=== PATIENT | female | born 1970 | race American Indian/Alaskan Native ===

== ENCOUNTER 2016-12-10 06:20 | Emergency (ER) | payer SELFPAY ==
[2016-12-10 06:44] VITALS: BP 152/108
--- NOTE | 2016-12-10 07:45 | Emergency Department Report ---
Addendum entered and electronically signed by MARK HERNANDEZ PA 12/10/16 16 :10: Cardiovascular S1-S2 regular rate and rhythm respiratory she is clear to auscultation bilateral Original Note: ED General Adult HPI - General Chief complaint: Headache Stated complaint: SINUS INFECTION Time Seen by Provider: 12/10/16 07:38 Source: patient Mode of arrival: Ambulatory Limitations: No Limitations - History of Present Illness Initial comments: 33-year-old female comes in for complaint of upper respiratory issues. She reports that she is here for her sinuses which she reports are draining now. She complains of nasal congestion she denies any nausea vomiting fever chills. She does admit to having a slight headache. She also reports to me that she's been out of her hypertensive medicine which consist of lisinopril/ hydrochlorothiazide 10-12.5 mg by mouth daily. She is requesting a refill on that medication. She does admit that she has been using her Afrin to often. She does report having a past medical history of sinus surgery. Which she feels this has not helped her issues - Related Data Home Medications Medication Instructions Recorded Confirmed Last Taken Lisinopril/Hydrochlorothiazide 1 tab PO QDAY 02/07/15 04/09/15 02/06/15 [Zestoretic 20-12.5 mg] Previous Rx's Medication Instructions Recorded Last Taken Type Clindamycin [Cleocin] 300 mg PO Q8H #21 cap 02/07/15 Unknown Rx Fluticasone Propionate [Flonase] 100 mcg NS QDAY #1 spray.susp 02/07/15 Unknown Rx Indomethacin [Indocin] 25 mg PO TID #21 capsule 04/09/15 Unknown Rx Nitrofurantoin [place]/M-Cryst 100 mg PO Q12HR #14 capsule 12/09/15 Unknown Rx [Macrobid CAP] Phenazopyridine [Pyridium] 100 mg PO TID #6 tab 12/09/15 Unknown Rx metroNIDAZOLE [Flagyl] 500 mg PO Q12HR #14 tab 12/09/15 Unknown Rx Azithromycin [Zithromax Z-MARSHA] 250 mg PO DAILY #6 tab 04/24/16 Unknown Rx Loratadine [Claritin] 10 mg PO DAILY #7 tablet 04/24/16 Unknown Rx Azithromycin [Zithromax] 250 mg PO DAILY #6 tablet 10/15/16 Unknown Rx Fexofenadine/Pseudoephedrine [Kro 1 each PO BID #60 tab.er.12h 12/10/16 Unknown Rx Allergy Relief-D Tablet] Lisinopril/Hydrochlorothiazide 1 tab PO QDAY #30 tablet 12/10/16 Unknown Rx [Zestoretic 10-12.5 mg] Allergies Allergy/AdvReac Type Severity Reaction Status Date / Time Penicillins Allergy Rash Verified 04/24/16 07:09 ED Review of Systems ROS: Stated complaint: SINUS INFECTION Other details as noted in HPI Constitutional: denies: chills, fever ENT: congestion. denies: throat pain, hearing loss Respiratory: denies: cough ED Past Medical Hx - Past Medical History Hx Hypertension: Yes Hx CVA: No Hx Heart Attack/AMI: No Hx Congestive Heart Failure: No Hx Diabetes: No Hx Deep Vein Thrombosis: No Hx Pulmonary Embolism: No Hx GERD: No Hx Liver Disease: No Hx Renal Disease: No Hx Sickle Cell Disease: No Hx Arthritis: No Hx Headaches / Migraines: No Hx Seizures: No Hx Kidney Stones: No Hx Psychiatric Treatment: No Hx Asthma: No Hx COPD: No Hx Tuberculosis: No Hx Dementia: No Hx HIV: No - Surgical History Hx Coronary Stent: No Hx Open Heart Surgery: No Hx Pacemaker: No Hx Internal Defibrillator: No Hx Cholecystectomy: Yes Hx Appendectomy: No Hx Breast Surgery: No Additional Surgical History: partial hysterectomy - Social History Smoking Status: Never Smoker Substance Use Type: None - Medications Home Medications: Home Medications Medication Instructions Recorded Confirmed Last Taken Type Clindamycin [Cleocin] 300 mg PO Q8H #21 cap 02/07/15 04/09/15 Unknown Rx Fluticasone Propionate [Flonase] 100 mcg NS QDAY #1 spray.susp 02/07/15 Unknown Rx Lisinopril/Hydrochlorothiazide 1 tab PO QDAY 02/07/15 04/09/15 02/06/15 History [Zestoretic 20-12.5 mg] Indomethacin [Indocin] 25 mg PO TID #21 capsule 04/09/15 Unknown Rx Nitrofurantoin [place]/M-Cryst 100 mg PO Q12HR #14 capsule 12/09/15 Unknown Rx [Macrobid CAP] Phenazopyridine [Pyridium] 100 mg PO TID #6 tab 12/09/15 Unknown Rx metroNIDAZOLE [Flagyl] 500 mg PO Q12HR #14 tab 12/09/15 Unknown Rx Azithromycin [Zithromax Z-MARSHA] 250 mg PO DAILY #6 tab 04/24/16 Unknown Rx Loratadine [Claritin] 10 mg PO DAILY #7 tablet 04/24/16 Unknown Rx Azithromycin [Zithromax] 250 mg PO DAILY #6 tablet 10/15/16 Unknown Rx Fexofenadine/Pseudoephedrine [Kro 1 each PO BID #60 tab.er.12h 12/10/16 Unknown Rx Allergy Relief-D Tablet] Lisinopril/Hydrochlorothiazide 1 tab PO QDAY #30 tablet 12/10/16 Unknown Rx [Zestoretic 10-12.5 mg] ED Physical Exam - General Limitations: No Limitations - Head Head exam: Present: atraumatic, normocephalic - Eye Eye exam: Present: normal appearance - ENT ENT exam: Present: TM's normal bilaterally, other (bilateral nasal turbinates are boggy and erythematous) - Neck Neck exam: Present: normal inspection. Absent: tenderness ED Course Vital Signs 12/10/16 06:30 Temperature 98.7 F Pulse Rate 78 Respiratory 18 Rate Blood Pressure 152/108 O2 Sat by Pulse 99 Oximetry ED Medical Decision Making - Medical Decision Making Patient's been evaluated by this provider in fast track. We'll refill her hypertensive medicine. Will place patient on Angle-D 1 tablet by mouth twice a day as well as recommend her to use the Afrin per nostril at night and uses the Flonase that she has at home as prescribed. Patient verbalized understanding Critical care attestation.: If time is entered above; I have spent that time in minutes in the direct care of this critically ill patient, excluding procedure time. ED Disposition Clinical Impression: Nasal congestion due to prolonged use of decongestants Hypertension Qualifiers: Hypertension type: essential hypertension Qualified Code(s): I10 - Essential ( primary) hypertension Disposition: DISCHARGED TO HOME OR SELFCARE Is pt being admited?: No Does the pt Need Aspirin: No Condition: Stable Instructions: Hypertension (ED) Prescriptions: Fexofenadine/Pseudoephedrine [Kro Allergy Relief-D Tablet] 1 each PO BID #60 tab.er.12h Lisinopril/Hydrochlorothiazide [Zestoretic 10-12.5 mg] 1 tab PO QDAY #30 tablet Referrals: PRIMARY CAREMD [Primary Care Provider] - 3-5 Days GIGI MEMBRENO MD [Staff Physician] - 3-5 Days Forms: Work/School Release Form(ED)
== END 2016-12-10 07:53 | disposition home or self-care (01) ==
LOC: ED 06:20
DX: R09.81 Nasal congestion (principal); I10 Essential (primary) hypertension; Z90.711 Acquired absence of uterus with remaining cervical stump; Z88.0 Allergy status to penicillin
CPT/HCPCS: 99282

== ENCOUNTER 2016-12-25 06:17 | Emergency (ER) | payer SELFPAY ==
[2016-12-25 07:18] VITALS: BP 140/98
--- NOTE | 2016-12-25 08:31 | Emergency Department Report ---
HPI - General Chief Complaint: Headache Time Seen by Provider: 12/25/16 07:59 - HPI HPI: This is a 46-year-old Afro-Australian female presents to the emergency department with a two-week history of a "sinus headache" which the patient complains of pressure to the forehead and around her nose.. She has a history of this in the past and says that it feels similar. She had some previous Flonase and Claritin and has been using that without much relief. She denies any fever, vision change, slurred speech or any neurological deficits. She denies any past medical history other than hypertension. She has a primary care doctor but cannot currently remember their name. No recent travel or sick contacts at home. She denies any chest pain, sore throat, shortness of breath, cough. ED Past Medical Hx - Past Medical History Hx Hypertension: Yes Hx CVA: No Hx Heart Attack/AMI: No Hx Congestive Heart Failure: No Hx Diabetes: No Hx Deep Vein Thrombosis: No Hx Pulmonary Embolism: No Hx GERD: No Hx Liver Disease: No Hx Renal Disease: No Hx Sickle Cell Disease: No Hx Arthritis: No Hx Headaches / Migraines: No Hx Seizures: No Hx Kidney Stones: No Hx Psychiatric Treatment: No Hx Asthma: No Hx COPD: No Hx Tuberculosis: No Hx Dementia: No Hx HIV: No - Surgical History Hx Coronary Stent: No Hx Open Heart Surgery: No Hx Pacemaker: No Hx Internal Defibrillator: No Hx Cholecystectomy: Yes Hx Appendectomy: No Hx Breast Surgery: No Additional Surgical History: partial hysterectomy - Social History Smoking Status: Never Smoker Substance Use Type: None - Medications Home Medications: Home Medications Medication Instructions Recorded Confirmed Last Taken Type Clindamycin [Cleocin] 300 mg PO Q8H #21 cap 02/07/15 04/09/15 Unknown Rx Fluticasone Propionate [Flonase] 100 mcg NS QDAY #1 spray.susp 02/07/15 Unknown Rx Lisinopril/Hydrochlorothiazide 1 tab PO QDAY 02/07/15 04/09/15 02/06/15 History [Zestoretic 20-12.5 mg] Indomethacin [Indocin] 25 mg PO TID #21 capsule 04/09/15 Unknown Rx Nitrofurantoin [place]/M-Cryst 100 mg PO Q12HR #14 capsule 01/29/16 Unknown Rx [Macrobid CAP] Phenazopyridine [Pyridium] 100 mg PO TID #6 tab 12/09/15 Unknown Rx metroNIDAZOLE [Flagyl] 500 mg PO Q12HR #14 tab 12/09/15 Unknown Rx Azithromycin [Zithromax Z-MARSHA] 250 mg PO DAILY #6 tab 04/24/16 Unknown Rx Loratadine [Claritin] 10 mg PO DAILY #7 tablet 04/24/16 Unknown Rx Azithromycin [Zithromax] 250 mg PO DAILY #6 tablet 10/15/16 Unknown Rx Fexofenadine/Pseudoephedrine [Kro 1 each PO BID #60 tab.er.12h 12/10/16 Unknown Rx Allergy Relief-D Tablet] Lisinopril/Hydrochlorothiazide 1 tab PO QDAY #30 tablet 12/10/16 Unknown Rx [Zestoretic 10-12.5 mg] Azithromycin [Zithromax Z-MARSHA] 250 mg PO DAILY #6 tab 12/25/16 Unknown Rx ED Review of Systems ROS: Stated complaint: SINUS HEADACHE Other details as noted in HPI Comment: All other systems reviewed and negative Constitutional: denies: chills, fever Eyes: denies: eye pain, eye discharge, vision change ENT: congestion. denies: ear pain, throat pain Respiratory: denies: cough, shortness of breath, wheezing Cardiovascular: denies: chest pain, palpitations Gastrointestinal: denies: abdominal pain, nausea, diarrhea Genitourinary: denies: urgency, dysuria, discharge Musculoskeletal: denies: back pain, joint swelling, arthralgia Skin: denies: rash, lesions Neurological: headache. denies: weakness, numbness Physical Exam - Physical Exam Vital Signs: Vital Signs 12/25/16 07:16 Temperature 98.5 F Pulse Rate 72 Respiratory 20 Rate Blood Pressure 140/98 O2 Sat by Pulse 99 Oximetry Physical Exam: GENERAL: The patient is well-developed well-nourished. HEENT: Normocephalic. Atraumatic. Extraocular motions are intact. Patient has moist mucous membranes. Pupils equal reactive to light bilaterally. Reproducible tenderness palpation to the bilateral maxillary and frontal sinuses. Slight cobblestoning appearance to the posterior pharynx. Boggy nasal mucosa bilaterally with some clearish white secretion seen. NECK: Supple. Trachea is midline. CHEST/LUNGS: Clear to auscultation. There is no respiratory distress noted. HEART/CARDIOVASCULAR: Regular. There is no tachycardia. There is no gallop rub or murmur. ABDOMEN: Abdomen is soft, nontender. Patient has normal bowel sounds. There is no abdominal distention. SKIN: There is no rash. There is no edema. There is no diaphoresis. NEURO: The patient is awake, alert, and oriented. The patient is cooperative. The patient has no focal neurologic deficits. The patient has normal speech. MUSCULOSKELETAL: There is no tenderness or deformity. There is no limitation range of motion. There is no evidence of acute injury. ED Course Vital Signs 12/25/16 07:16 Temperature 98.5 F Pulse Rate 72 Respiratory 20 Rate Blood Pressure 140/98 O2 Sat by Pulse 99 Oximetry ED Medical Decision Making - Medical Decision Making 46-year-old female presents with complaint of sinus pressure and headache. She does have some boggy nasal mucosa and a slight cobblestoning appearance to the posterior pharynx. Vital signs stable including being afebrile. Already on Flonase and Claritin so will add a Z-Marsha and give the patient a single dose of Decadron. She will be encouraged to follow up with her PCP and return to the ER with any worsening of her symptoms or any acute distress. Critical Care Time: No Critical care attestation.: If time is entered above; I have spent that time in minutes in the direct care of this critically ill patient, excluding procedure time. ED Disposition Clinical Impression: Sinusitis Qualifiers: Sinusitis location: unspecified location Chronicity: subacute Qualified Code(s) : J01.90 - Acute sinusitis, unspecified Hypertension Qualifiers: Hypertension type: essential hypertension Qualified Code(s): I10 - Essential ( primary) hypertension Disposition: DISCHARGED TO HOME OR SELFCARE Is pt being admited?: No Does the pt Need Aspirin: No Condition: Good Instructions: Hypertension (ED), Sinusitis (ED) Additional Instructions: Please follow-up with your primary care doctor. I also given a referral for a local ear nose throat physician. Return to the emergency department with any acute distress. Prescriptions: Azithromycin [Zithromax Z-MARSHA] 250 mg PO DAILY #6 tab Referrals: KAYY BECERRA MD [Primary Care Provider] - 3-5 Days EMMA ELIAS MD [Staff Physician] - 3-5 Days Time of Disposition: 08:32
[2016-12-25] MEDS ORDERED: DECADRON PO ONE (09:00)
== END 2016-12-25 09:01 | disposition home or self-care (01) ==
LOC: ED 06:17
DX: J01.90 Acute sinusitis, unspecified (principal); I10 Essential (primary) hypertension; Z90.49 Acquired absence of other specified parts of digestive tract; Z90.711 Acquired absence of uterus with remaining cervical stump
CPT/HCPCS: 99282; J8540

== ENCOUNTER 2017-02-26 14:48 | Emergency (ER) | payer SELFPAY ==
[2017-02-26 15:43] VITALS: BP 136/96
--- NOTE | 2017-02-26 15:58 | Emergency Department Report ---
Entered by YANI ROSS, acting as scribe for ARMANDO SOUZA NP. Chief Complaint: Headache Stated Complaint: HEADACHE Time Seen by Provider: 02/26/17 15:39 - HPI History of Present Illness: 46 y/o female presents c/o throbbing, 8/10, HOWELL that started 3 days ago. Sx include blurry vision but pt denies N/V or fever. Pt notes taking Tylenol with no relief. - ROS Review of Systems: +HOWELL +blurry vision -N -V -fever - Exam Vital Signs: Vital Signs 02/26/17 15:38 Temperature 98.5 F Pulse Rate 85 Respiratory 16 Rate Blood Pressure 136/96 O2 Sat by Pulse 100 Oximetry Physical Exam: PT c/o R frontal/ temporal headache Pt is alert and appropriate gcs 15 steady gait MSE screening note: Focused history and physical exam performed. Due to findings the following was ordered: ct head ED Disposition for MSE Condition: Stable This documentation as recorded by the scribe,YANI ROSS,accurately reflects the service I personally performed and the decisions made by LIBBY shepherd TRACY M , PROGRAM COORDINATOR.
--- NOTE | 2017-02-26 17:18 | Cat Scan Report ---
FINAL REPORT EXAM: CT HEAD/BRAIN WO CON HISTORY: frequent worsening rodriguez TECHNIQUE: CT head without contrast PRIORS: None. FINDINGS: No acute intra-axial or extra-axial hemorrhage is identified. There is no evidence of midline shift or mass effect. The ventricles and sulci are within normal limits. Concepcion-white matter differentiation is intact. No acute parenchymal abnormalities seen. Bony calvarium is grossly intact. Visualized portions of the mastoids and paranasal sinuses are unremarkable. IMPRESSION: Negative CT head
[2017-02-26] MEDS ORDERED: TORADOL IM ONE ×2 (18:04→18:35)
[2017-02-26] MEDS ORDERED: TORADOL ONE (18:07)
--- NOTE | 2017-02-26 18:40 | Emergency Department Report ---
ED Headache HPI - General Chief Complaint: Headache Stated Complaint: HEADACHE Time Seen by Provider: 02/26/17 15:39 Source: patient - History of Present Illness Initial Comments: 46-year-old -[place]ub[place] female comes in with complaint of a headache 2 days. Patient reports pain similar right jewish area above the right eye. She took Tylenol without any resolution of pain. She does complain of intermittent blurred vision off and on times couple days. She denies any nausea vomiting. Denies any fever or chills. She did complain of a nosebleed times a couple of seconds this morning right near only. She does admit that she is out of her blood pressure medicine as of yesterday. Timing/Duration: other (days) Quality: achy, pressure Head Injury Location: temporal Recent Head Trauma: no recent headache/trauma Modifying Factors: worse with: exposure to light Associated Symptoms: denies: fever/chills, nausea/vomiting, nasal congestion Allergies/Adverse Reactions: Allergies Penicillins Allergy (Verified 02/26/17 15:44) Rash Home Medications: Ambulatory Orders Clindamycin [Cleocin] 300 mg PO Q8H #21 cap 02/07/15 Fluticasone Propionate [Flonase] 100 mcg NS QDAY #1 spray.susp 02/07/15 Lisinopril/Hydrochlorothiazide [Zestoretic 20-12.5 mg] 1 tab PO QDAY 02/07/15 Indomethacin [Indocin] 25 mg PO TID #21 capsule 04/09/15 Nitrofurantoin [place]/M-Cryst [Macrobid CAP] 100 mg PO Q12HR #14 capsule 12/09/15 Phenazopyridine [Pyridium] 100 mg PO TID #6 tab 12/09/15 metroNIDAZOLE [Flagyl] 500 mg PO Q12HR #14 tab 12/09/15 Azithromycin [Zithromax Z-MARSHA] 250 mg PO DAILY #6 tab 04/24/16 Loratadine [Claritin] 10 mg PO DAILY #7 tablet 04/24/16 Azithromycin [Zithromax] 250 mg PO DAILY #6 tablet 10/15/16 Fexofenadine/Pseudoephedrine [Kro Allergy Relief-D Tablet] 1 each PO BID #60 tab.er.12h 12/10/16 Azithromycin [Zithromax Z-MARSHA] 250 mg PO DAILY #6 tab 12/25/16 Ibuprofen [Motrin 800 MG tab] 800 mg PO Q8HR PRN #30 tablet 02/26/17 Lisinopril/Hydrochlorothiazide [Zestoretic 10-12.5 mg] 1 tab PO QDAY #30 tablet 02/26/17 ED Review of Systems ROS: Stated complaint: HEADACHE Other details as noted in HPI Respiratory: denies: cough, shortness of breath, wheezing Cardiovascular: denies: chest pain, palpitations Gastrointestinal: denies: abdominal pain, nausea, vomiting, diarrhea Genitourinary: denies: urgency, dysuria, discharge Musculoskeletal: denies: back pain, joint swelling, arthralgia Skin: denies: rash, lesions Neurological: headache ED Past Medical Hx - Past Medical History Hx Hypertension: Yes Hx CVA: No Hx Heart Attack/AMI: No Hx Congestive Heart Failure: No Hx Diabetes: No Hx Deep Vein Thrombosis: No Hx Pulmonary Embolism: No Hx GERD: No Hx Liver Disease: No Hx Renal Disease: No Hx Sickle Cell Disease: No Hx Arthritis: No Hx Headaches / Migraines: No Hx Seizures: No Hx Kidney Stones: No Hx Psychiatric Treatment: No Hx Asthma: No Hx COPD: No Hx Tuberculosis: No Hx Dementia: No Hx HIV: No - Surgical History Hx Coronary Stent: No Hx Open Heart Surgery: No Hx Pacemaker: No Hx Internal Defibrillator: No Hx Cholecystectomy: Yes Hx Appendectomy: No Hx Breast Surgery: No Additional Surgical History: partial hysterectomy. TUBAL LIGATION - Social History Smoking Status: Never Smoker Substance Use Type: None - Medications Home Medications: Home Medications Medication Instructions Recorded Confirmed Last Taken Type Clindamycin [Cleocin] 300 mg PO Q8H #21 cap 02/07/15 04/09/15 Unknown Rx Fluticasone Propionate [Flonase] 100 mcg NS QDAY #1 spray.susp 02/07/15 Unknown Rx Lisinopril/Hydrochlorothiazide 1 tab PO QDAY 02/07/15 04/09/15 02/06/15 History [Zestoretic 20-12.5 mg] Indomethacin [Indocin] 25 mg PO TID #21 capsule 04/09/15 Unknown Rx Nitrofurantoin [place]/M-Cryst 100 mg PO Q12HR #14 capsule 12/09/15 Unknown Rx [Macrobid CAP] Phenazopyridine [Pyridium] 100 mg PO TID #6 tab 12/09/15 Unknown Rx metroNIDAZOLE [Flagyl] 500 mg PO Q12HR #14 tab 12/09/15 Unknown Rx Azithromycin [Zithromax Z-MARSHA] 250 mg PO DAILY #6 tab 04/24/16 Unknown Rx Loratadine [Claritin] 10 mg PO DAILY #7 tablet 04/24/16 Unknown Rx Azithromycin [Zithromax] 250 mg PO DAILY #6 tablet 10/15/16 Unknown Rx Fexofenadine/Pseudoephedrine [Kro 1 each PO BID #60 tab.er.12h 12/10/16 Unknown Rx Allergy Relief-D Tablet] Azithromycin [Zithromax Z-MARSHA] 250 mg PO DAILY #6 tab 12/25/16 Unknown Rx Ibuprofen [Motrin 800 MG tab] 800 mg PO Q8HR PRN #30 tablet 02/26/17 Unknown Rx Lisinopril/Hydrochlorothiazide 1 tab PO QDAY #30 tablet 02/26/17 Unknown Rx [Zestoretic 10-12.5 mg] ED Physical Exam - General Limitations: No Limitations General appearance: alert - Head Head exam: Present: atraumatic - Eye Eye exam: Present: normal appearance, PERRL, EOMI - ENT ENT exam: Present: normal exam, mucous membranes moist - Neurological Exam Neurological exam: Present: alert, oriented X3, normal gait - Expanded Neurological Exam Expanded Cranial nerves: EOM's Intact: Normal, Gag Reflex: Normal, Tongue Deviation: Normal Cerebellar function: Finger to Nose: Normal, Heel to [place]: Normal, Romberg: Normal ED Course Vital Signs 02/26/17 15:38 Temperature 98.5 F Pulse Rate 85 Respiratory 16 Rate Blood Pressure 136/96 O2 Sat by Pulse 100 Oximetry ED Medical Decision Making - Radiology Data Radiology results: report reviewed, image reviewed CT is negative. - Medical Decision Making Patient has been evaluated by this provider fast track. Discuss with patient we 'll give her an injection for Toradol for headache. Discussed patient that we will refill her blood pressure medication. And refer her to her primary care provider. Critical care attestation.: If time is entered above; I have spent that time in minutes in the direct care of this critically ill patient, excluding procedure time. ED Disposition Clinical Impression: Headache above the eye region, HTN, goal below 130/80 Disposition: DISCHARGED TO HOME OR SELFCARE Is pt being admited?: No Does the pt Need Aspirin: No Condition: Stable Instructions: Hypertension (ED), Tension Headache (ED) Additional Instructions: Please take your blood pressure medication as prescribed. He can take ibuprofen for pain. Definite follow-up which her primary care provider for further evaluation of her hypertension. Prescriptions: Ibuprofen [Motrin 800 MG tab] 800 mg PO Q8HR PRN #30 tablet PRN Reason: Pain Lisinopril/Hydrochlorothiazide [Zestoretic 10-12.5 mg] 1 tab PO QDAY #30 tablet Referrals: PRIMARY CARE, [Primary Care Provider] - 3-5 Days Forms: Work/School Release Form(ED)
== END 2017-02-26 19:36 | disposition home or self-care (01) ==
LOC: ED 14:48
DX: R51 Headache (principal); I10 Essential (primary) hypertension; Z88.0 Allergy status to penicillin
CPT/HCPCS: 70450; 96372; 99283; J1885

== ENCOUNTER 2017-03-25 18:10 | Emergency (ER) | payer SELFPAY ==
--- NOTE | 2017-03-25 18:40 | Emergency Department Report ---
Chief Complaint: Abdominal Pain Stated Complaint: LFT SIDE ABD PAIN /SINUS PRESSURE Time Seen by Provider: 03/25/17 18:45 - HPI History of Present Illness: sinus pressure and frequency w urination no n/v/d denies pain its pressure shes had uti's in past feels the same hx tubal vss nad ua - Exam Vital Signs: Vital Signs 03/25/17 18:34 Temperature 98.2 F Pulse Rate 86 Respiratory 18 Rate Blood Pressure 141/98 O2 Sat by Pulse 99 Oximetry MSE screening note: Focused history and physical exam performed. Due to findings the following was ordered: ED Disposition for MSE Condition: Stable Instructions: Abdominal Pain (ED)
[2017-03-25 20:50] LABS: Basophils % (Auto) 0.7 % (0.0-1.8); Hematocrit 40.3 % (30.3-42.9); Hemoglobin 13.4 gm/dl (10.1-14.3); Mean Corpuscular HGB Conc 33 % (30-34); Mean Corpuscular Hemoglobin 27 pg (28-32); Mean Corpuscular Volume 81 fl (79-97); Platelet Count 300 K/mm3 (140-440); Red Blood Count 4.95 M/mm3 (3.65-5.03); Red Cell Distribution Width 14.1 % (13.2-15.2); White Blood Count 8.3 K/mm3 (4.5-11.0)
[2017-03-25 20:56] LABS: Bilirubin,Urine NEG (Negative); Blood,Urine NEG (Negative); Ketones,Urine TR mg/dL (Negative); Leukocyte Esterase,Urine NEG (Negative); Mucus,Urine 1+ /HPF; Nitrite,Urine NEG (Negative); Urobilinogen,Urine < 2.0 mg/dL (<2.0)
[2017-03-25 21:11] LABS: Alanine Aminotransferase 12 units/L (7-56); Albumin 3.9 g/dL (3.9-5); Albumin/Globulin Ratio 1.3 %; Alkaline Phosphatase 101 units/L (35-129); Amylase 56 units/L (27-131); Anion Gap 17 mmol/L; BUN/Creatinine Ratio 15.71; Blood Urea Nitrogen 11 mg/dL (7-17); Calcium 9.2 mg/dL (8.4-10.2); Carbon Dioxide 26 mmol/L (22-30); Chloride 98.3 mmol/L (98-107); Glucose 152 mg/dL (65-100); Lipase 13 units/L (13-60); Potassium 3.4 mmol/L (3.6-5.0); Sodium 138 mmol/L (137-145); Total Protein 6.9 g/dL (6.3-8.2)
[2017-03-25 21:18] LABS: Bilirubin,Direct < 0.2 mg/dL (0-0.2)
--- NOTE | 2017-03-25 22:33 | XRay Report ---
FINAL REPORT PROCEDURE: XR ABD SERIES W CXR 1V TECHNIQUE: Abdominal series complete, including supine and upright AP views of the abdomen and frontal chest. HISTORY: abd pain, cough COMPARISON: No prior studies are available for comparison. FINDINGS: Heart: Normal. Mediastinum/Vessels: Normal. Lungs/Pleural space: Normal. Bowel gas pattern: Nonobstructive. Masses or calcifications: None. Bony structures: No acute osseous abnormality. Other: No free intraperitoneal air. There has been a cholecystectomy. IMPRESSION: No acute abnormality.
--- NOTE | 2017-03-25 23:05 | Emergency Department Report ---
ED Abdominal Pain HPI - General Stated Complaint: LFT SIDE ABD PAIN /SINUS PRESSURE Source: patient Mode of arrival: Ambulatory Limitations: No Limitations - History of Present Illness Initial Comments: 46 year old female presents to ED with left sided upper abdominal pressure and sinus pain x2-3 days. patient denies nausea, vomiting, diarrhea. patient is stable, neurologically intact and in no acute distress. patient states she has recurrent sinus infections. MD Complaint: abdominal pain -: Gradual Location: LUQ Radiation: none Migration to: no migration Severity: mild Severity scale (0 -10): 1 Quality: fullness Consistency: now resolved Improves With: nothing Worsens With: nothing Associated Symptoms: denies: nausea, vomiting, diarrhea, fever, chills, constipation, dysuria, hematemesis, hematochezia, hematuria, syncope - Related Data LMP (females 10-50): other (partial hysterectomy) Home Medications Medication Instructions Recorded Confirmed Last Taken Lisinopril/Hydrochlorothiazide 1 tab PO QDAY 02/07/15 04/09/15 02/06/15 [Zestoretic 20-12.5 mg] Previous Rx's Medication Instructions Recorded Last Taken Type Clindamycin [Cleocin] 300 mg PO Q8H #21 cap 02/07/15 Unknown Rx Fluticasone Propionate [Flonase] 100 mcg NS QDAY #1 spray.susp 02/07/15 Unknown Rx Indomethacin [Indocin] 25 mg PO TID #21 capsule 04/09/15 Unknown Rx Nitrofurantoin [place]/M-Cryst 100 mg PO Q12HR #14 capsule 12/09/15 Unknown Rx [Macrobid CAP] Phenazopyridine [Pyridium] 100 mg PO TID #6 tab 12/09/15 Unknown Rx metroNIDAZOLE [Flagyl] 500 mg PO Q12HR #14 tab 12/09/15 Unknown Rx Azithromycin [Zithromax Z-MARSHA] 250 mg PO DAILY #6 tab 04/24/16 Unknown Rx Loratadine [Claritin] 10 mg PO DAILY #7 tablet 04/24/16 Unknown Rx Azithromycin [Zithromax] 250 mg PO DAILY #6 tablet 10/15/16 Unknown Rx Fexofenadine/Pseudoephedrine [Kro 1 each PO BID #60 tab.er.12h 12/10/16 Unknown Rx Allergy Relief-D Tablet] Azithromycin [Zithromax Z-MARSHA] 250 mg PO DAILY #6 tab 12/25/16 Unknown Rx Ibuprofen [Motrin 800 MG tab] 800 mg PO Q8HR PRN #30 tablet 02/26/17 Unknown Rx Lisinopril/Hydrochlorothiazide 1 tab PO QDAY #30 tablet 02/26/17 Unknown Rx [Zestoretic 10-12.5 mg] Azithromycin [Zithromax Z-MARSHA] 250 mg PO QDAY #6 tablet 03/25/17 Unknown Rx Fluticasone [Flonase] 1 spray NS QDAY #1 bottle 03/25/17 Unknown Rx Ketorolac [Toradol] 10 mg PO Q6H PRN #20 tablet 03/25/17 Unknown Rx Allergies Allergy/AdvReac Type Severity Reaction Status Date / Time Penicillins Allergy Rash Verified 02/26/17 15:44 ED Review of Systems ROS: Stated complaint: LFT SIDE ABD PAIN /SINUS PRESSURE Other details as noted in HPI Constitutional: denies: chills, fever Eyes: denies: eye pain, eye discharge, vision change ENT: congestion, other (sinus pressure/pain). denies: ear pain, throat pain, dental pain Respiratory: denies: cough, shortness of breath, wheezing Cardiovascular: denies: chest pain, palpitations Endocrine: no symptoms reported Gastrointestinal: abdominal pain. denies: nausea, diarrhea Genitourinary: denies: urgency, dysuria, discharge Musculoskeletal: denies: back pain, joint swelling, arthralgia Skin: denies: rash, lesions Neurological: denies: headache, weakness, paresthesias Psychiatric: denies: anxiety, depression Hematological/Lymphatic: denies: easy bleeding, easy bruising ED Past Medical Hx - Past Medical History Previous Medical History?: Yes Hx Hypertension: Yes Hx CVA: No Hx Heart Attack/AMI: No Hx Congestive Heart Failure: No Hx Diabetes: No Hx Deep Vein Thrombosis: No Hx Pulmonary Embolism: No Hx GERD: No Hx Liver Disease: No Hx Renal Disease: No Hx Sickle Cell Disease: No Hx Arthritis: No Hx Headaches / Migraines: No Hx Seizures: No Hx Kidney Stones: No Hx Psychiatric Treatment: No Hx Asthma: No Hx COPD: No Hx Tuberculosis: No Hx Dementia: No Hx HIV: No - Surgical History Past Surgical History?: Yes Hx Coronary Stent: No Hx Open Heart Surgery: No Hx Pacemaker: No Hx Internal Defibrillator: No Hx Cholecystectomy: Yes Hx Appendectomy: No Hx Breast Surgery: No Additional Surgical History: partial hysterectomy. TUBAL LIGATION - Social History Smoking Status: Never Smoker Substance Use Type: None - Medications Home Medications: Home Medications Medication Instructions Recorded Confirmed Last Taken Type Clindamycin [Cleocin] 300 mg PO Q8H #21 cap 02/07/15 04/09/15 Unknown Rx Fluticasone Propionate [Flonase] 100 mcg NS QDAY #1 spray.susp 02/07/15 Unknown Rx Lisinopril/Hydrochlorothiazide 1 tab PO QDAY 02/07/15 04/09/15 02/06/15 History [Zestoretic 20-12.5 mg] Indomethacin [Indocin] 25 mg PO TID #21 capsule 04/09/15 Unknown Rx Nitrofurantoin [place]/M-Cryst 100 mg PO Q12HR #14 capsule 12/09/15 Unknown Rx [Macrobid CAP] Phenazopyridine [Pyridium] 100 mg PO TID #6 tab 12/09/15 Unknown Rx metroNIDAZOLE [Flagyl] 500 mg PO Q12HR #14 tab 12/09/15 Unknown Rx Azithromycin [Zithromax Z-MARSHA] 250 mg PO DAILY #6 tab 04/24/16 Unknown Rx Loratadine [Claritin] 10 mg PO DAILY #7 tablet 04/24/16 Unknown Rx Azithromycin [Zithromax] 250 mg PO DAILY #6 tablet 10/15/16 Unknown Rx Fexofenadine/Pseudoephedrine [Kro 1 each PO BID #60 tab.er.12h 12/10/16 Unknown Rx Allergy Relief-D Tablet] Azithromycin [Zithromax Z-MARSHA] 250 mg PO DAILY #6 tab 12/25/16 Unknown Rx Ibuprofen [Motrin 800 MG tab] 800 mg PO Q8HR PRN #30 tablet 02/26/17 Unknown Rx Lisinopril/Hydrochlorothiazide 1 tab PO QDAY #30 tablet 02/26/17 Unknown Rx [Zestoretic 10-12.5 mg] Azithromycin [Zithromax Z-MARSHA] 250 mg PO QDAY #6 tablet 03/25/17 Unknown Rx Fluticasone [Flonase] 1 spray NS QDAY #1 bottle 03/25/17 Unknown Rx Ketorolac [Toradol] 10 mg PO Q6H PRN #20 tablet 03/25/17 Unknown Rx ED Physical Exam - General Limitations: No Limitations General appearance: alert, in no apparent distress - Head Head exam: Present: atraumatic, normocephalic - Eye Eye exam: Present: normal appearance, PERRL, EOMI Pupils: Present: normal accommodation - ENT ENT exam: Present: normal exam, normal orophraynx, mucous membranes moist, TM's normal bilaterally, other (tenderness over maxillary sinus) - Neck Neck exam: Present: normal inspection, full ROM. Absent: tenderness - Respiratory Respiratory exam: Present: normal lung sounds bilaterally. Absent: respiratory distress, wheezes - Cardiovascular Cardiovascular Exam: Present: regular rate, normal rhythm. Absent: systolic murmur, diastolic murmur, rubs, gallop - GI/Abdominal GI/Abdominal exam: Present: soft, normal bowel sounds. Absent: distended, tenderness, guarding, rebound, organomegaly, mass - Extremities Exam Extremities exam: Present: normal inspection, full ROM - Back Exam Back exam: Present: normal inspection, full ROM. Absent: tenderness - Neurological Exam Neurological exam: Present: alert, oriented X3, normal gait - Psychiatric Psychiatric exam: Present: normal affect, normal mood - Skin Skin exam: Present: warm, dry, intact, normal color. Absent: rash ED Course Vital Signs 03/25/17 18:34 Temperature 98.2 F Pulse Rate 86 Respiratory 18 Rate Blood Pressure 141/98 O2 Sat by Pulse 99 Oximetry ED Medical Decision Making - Lab Data Result diagrams: 03/25/17 20:38 03/25/17 20:38 Lab Results 03/25/17 03/25/17 03/25/17 Range/Units 20:38 20:38 20:38 WBC 8.3 (4.5-11.0) K/mm3 RBC 4.95 (3.65-5.03) M/mm3 Hgb 13.4 (10.1-14.3) gm/dl Hct 40.3 (30.3-42.9) % MCV 81 (79-97) fl MCH 27 L (28-32) pg MCHC 33 (30-34) % RDW 14.1 (13.2-15.2) % Plt Count 300 (140-440) K/mm3 Lymph % (Auto) 34.2 (13.4-35.0) % [place] % (Auto) 6.0 (0.0-7.3) % Eos % (Auto) 5.0 H (0.0-4.3) % Baso % (Auto) 0.7 (0.0-1.8) % Lymph # 2.8 (1.2-5.4) K/mm3 [place] # 0.5 (0.0-0.8) K/mm3 Eos # 0.4 (0.0-0.4) K/mm3 Baso # 0.1 (0.0-0.1) K/mm3 Seg Neutrophils % 54.1 (40.0-70.0) % Seg Neutrophils # 4.5 (1.8-7.7) K/mm3 Sodium 138 (137-145) mmol/L Potassium 3.4 L (3.6-5.0) mmol/L Chloride 98.3 (98-107) mmol/L Carbon Dioxide 26 (22-30) mmol/L Anion Gap 17 mmol/L BUN 11 (7-17) mg/dL Creatinine 0.7 (0.7-1.2) mg/dL Estimated GFR > 60 ml/min BUN/Creatinine Ratio 15.71 % Glucose 152 H (65-100) mg/dL Calcium 9.2 (8.4-10.2) mg/dL Total Bilirubin 0.20 (0.1-1.2) mg/dL Direct Bilirubin < 0.2 (0-0.2) mg/dL Indirect Bilirubin 0.0 mg/dL AST 13 (5-40) units/L ALT 12 (7-56) units/L Alkaline Phosphatase 101 (35-129) units/L Troponin T (0.00-0.029) ng/mL Total Protein 6.9 (6.3-8.2) g/dL Albumin 3.9 (3.9-5) g/dL Albumin/Globulin Ratio 1.3 % Amylase 56 (27-131) units/L Lipase 13 (13-60) units/L HCG, Qual (Negative) Urine Color Yellow (Yellow) Urine Turbidity Clear (Clear) Urine pH 5.0 (5.0-7.0) Ur Specific Lottie 1.028 (1.003-1.030) Urine Protein 30 mg/dl (Negative) mg/dL Urine Glucose (UA) 50 (Negative) mg/dL Urine Ketones Tr (Negative) mg/dL Urine Blood Neg (Negative) Urine Nitrite Neg (Negative) Urine Bilirubin Neg (Negative) Urine Urobilinogen < 2.0 (<2.0) mg/dL Ur Leukocyte Esterase Neg (Negative) Urine WBC (Auto) 1.0 (0.0-6.0) /HPF Urine RBC (Auto) 2.0 (0.0-6.0) /HPF U Epithel Cells (Auto) 2.0 (0-13.0) /HPF Urine Mucus 1+ /HPF 03/25/17 03/25/17 Range/Units 20:38 20:38 WBC (4.5-11.0) K/mm3 RBC (3.65-5.03) M/mm3 Hgb (10.1-14.3) gm/dl Hct (30.3-42.9) % MCV (79-97) fl MCH (28-32) pg MCHC (30-34) % RDW (13.2-15.2) % Plt Count (140-440) K/mm3 Lymph % (Auto) (13.4-35.0) % [place] % (Auto) (0.0-7.3) % Eos % (Auto) (0.0-4.3) % Baso % (Auto) (0.0-1.8) % Lymph # (1.2-5.4) K/mm3 [place] # (0.0-0.8) K/mm3 Eos # (0.0-0.4) K/mm3 Baso # (0.0-0.1) K/mm3 Seg Neutrophils % (40.0-70.0) % Seg Neutrophils # (1.8-7.7) K/mm3 Sodium (137-145) mmol/L Potassium (3.6-5.0) mmol/L Chloride (98-107) mmol/L Carbon Dioxide (22-30) mmol/L Anion Gap mmol/L BUN (7-17) mg/dL Creatinine (0.7-1.2) mg/dL Estimated GFR ml/min BUN/Creatinine Ratio % Glucose (65-100) mg/dL Calcium (8.4-10.2) mg/dL Total Bilirubin (0.1-1.2) mg/dL Direct Bilirubin (0-0.2) mg/dL Indirect Bilirubin mg/dL AST (5-40) units/L ALT (7-56) units/L Alkaline Phosphatase (35-129) units/L Troponin T < 0.010 (0.00-0.029) ng/mL Total Protein (6.3-8.2) g/dL Albumin (3.9-5) g/dL Albumin/Globulin Ratio % Amylase (27-131) units/L Lipase (13-60) units/L HCG, Qual Negative (Negative) Urine Color (Yellow) Urine Turbidity (Clear) Urine pH (5.0-7.0) Ur Specific Lottie (1.003-1.030) Urine Protein (Negative) mg/dL Urine Glucose (UA) (Negative) mg/dL Urine Ketones (Negative) mg/dL Urine Blood (Negative) Urine Nitrite (Negative) Urine Bilirubin (Negative) Urine Urobilinogen (<2.0) mg/dL Ur Leukocyte Esterase (Negative) Urine WBC (Auto) (0.0-6.0) /HPF Urine RBC (Auto) (0.0-6.0) /HPF U Epithel Cells (Auto) (0-13.0) /HPF Urine Mucus /HPF - Radiology Data Radiology results: report reviewed Xr abdomen 2view with CXR No acute abnormalities per radiologist. - Medical Decision Making 46 year old female presents to ED with left sided upper abdominal pain that has now resolved and sinus pressure/congestion x3 days. patient will be given RX for antibiotics due to sinus tenderness, NSAID's and flonase. patient is stable , neurologically intact and in no acute distress. patient has negative imaging studies for abdominal pain. Critical care attestation.: If time is entered above; I have spent that time in minutes in the direct care of this critically ill patient, excluding procedure time. ED Disposition Clinical Impression: Sinusitis Qualifiers: Sinusitis location: maxillary Chronicity: acute Recurrence: recurrent Qualified Code(s): J01.01 - Acute recurrent maxillary sinusitis Disposition: DISCHARGED TO HOME OR SELFCARE Is pt being admited?: No Does the pt Need Aspirin: No Condition: Stable Instructions: Sinusitis (ED), Abdominal Pain (ED) Prescriptions: Azithromycin [Zithromax Z-MARSHA] 250 mg PO QDAY #6 tablet Fluticasone [Flonase] 1 spray NS QDAY #1 bottle Ketorolac [Toradol] 10 mg PO Q6H PRN #20 tablet PRN Reason: Pain Referrals: PRIMARY CARE, [Primary Care Provider] - 3-5 Days ENT [facility] [Provider Group] - 3-5 Days [facility]NT [facility] [Provider Group] - 3-5 Days Forms: Work/School Release Form(ED)
[2017-03-25 23:24] VITALS: BP 130/75
== END 2017-03-25 23:24 | disposition home or self-care (01) ==
LOC: ED 18:10
DX: J01.01 Acute recurrent maxillary sinusitis (principal); I10 Essential (primary) hypertension; Z88.0 Allergy status to penicillin
CPT/HCPCS: 36415; 74022; 80048; 80074; 81001; 82150; 83690; 84484; 84703; 85025

== ENCOUNTER 2017-07-06 02:02 | Emergency (ER) | payer SELFPAY ==
[2017-07-06 02:47] VITALS: BP 150/101
== END 2017-07-06 04:19 | disposition left against medical advice (07) ==
LOC: ED 02:02
DX: R51 Headache (principal); Z53.21 Procedure and treatment not carried out due to patient leaving prior to being seen by health care provider

== ENCOUNTER 2018-11-16 04:32 | Inpatient (IN) | payer OTHER ==
[2018-11-16] MEDS ORDERED: ASPIRIN PO ONE (06:07)
[2018-11-16 06:23] LABS: Basophils % (Auto) 0.7 % (0.0-1.8); Eosinophils # (Auto) 0.2 K/mm3 (0.0-0.4); Eosinophils % (Auto) 2.8 % (0.0-4.3); Hematocrit 43.5 % (30.3-42.9); Hemoglobin 14.5 gm/dl (10.1-14.3); Lymphocytes # (Auto) 2.6 K/mm3 (1.2-5.4); Lymphocytes % (Auto) 43.6 % (13.4-35.0); Mean Corpuscular HGB Conc 33 % (30-34); Mean Corpuscular Volume 81 fl (79-97); Monocytes # (Auto) 0.4 K/mm3 (0.0-0.8); Monocytes % (Auto) 6.4 % (0.0-7.3); Platelet Count 228 K/mm3 (140-440); Red Blood Count 5.36 M/mm3 (3.65-5.03); Red Cell Distribution Width 12.9 % (13.2-15.2)
[2018-11-16 06:51] LABS: BUN/Creatinine Ratio 10; Blood Urea Nitrogen 7 mg/dL (7-17); Calcium 9.9 mg/dL (8.4-10.2); Hemolysis Index 6
[2018-11-16] MEDS ORDERED: ALUM-MAG HYDROX-SIMETH 200-200-20MG/5ML PO ONE (08:12)
[2018-11-16] MEDS ORDERED: LIDOCAINE VISCOUS 2% PO ONE (08:12)
[2018-11-16] MEDS ORDERED: PROTONIX PO ONE (08:12)
--- NOTE | 2018-11-16 08:49 | Emergency Department Report ---
ED Chest Pain HPI - General Chief Complaint: Chest Pain Stated Complaint: CHEST PAIN Time Seen by Provider: 11/16/18 07:51 Source: patient Mode of arrival: Ambulatory Limitations: No Limitations - History of Present Illness Initial Comments: 28-year-old female with mid sternal chest pain which does not radiate and is not associated with dyspnea. She seems to think that swallowing is a precipitant. She describes it as a heartburn sensation in the middle of her chest. She has had heartburn before and has taken Rolaids. However it has not improved this time. She has no prior workup for coronary artery disease. She was unaware of being a diabetic which is now diagnosed. MD Complaint: chest pain -: Gradual, hour(s), month(s) (intermittently for months) Onset: during rest Pain Location: substernal Pain Radiation: none Severity: moderate Quality: other (like heartburn) Consistency: intermittent Improves With: nothing Worsens With: other (swallowing) re: denies: nausea, vomting, diaphoresis, dyspnea, sense of impending doom Other Symptoms: denies: cough, fever, syncope Treatments Prior to Arrival: none - Related Data Home Medications Medication Instructions Recorded Confirmed Last Taken Lisinopril/Hydrochlorothiazide 1 tab PO QDAY 02/07/15 04/09/15 02/06/15 [Zestoretic 20-12.5 mg] Previous Rx's Medication Instructions Recorded Last Taken Type Clindamycin [Cleocin] 300 mg PO Q8H #21 cap 02/07/15 Unknown Rx Fluticasone Propionate [Flonase] 100 mcg NS QDAY #1 spray.susp 02/07/15 Unknown Rx Indomethacin [Indocin] 25 mg PO TID #21 capsule 04/09/15 Unknown Rx Nitrofurantoin [place]/M-Cryst 100 mg PO Q12HR #14 capsule 12/09/15 Unknown Rx [Macrobid CAP] Phenazopyridine [Pyridium] 100 mg PO TID #6 tab 12/09/15 Unknown Rx metroNIDAZOLE [Flagyl] 500 mg PO Q12HR #14 tab 12/09/15 Unknown Rx Azithromycin [Zithromax Z-MARSHA] 250 mg PO DAILY #6 tab 04/24/16 Unknown Rx Loratadine [Claritin] 10 mg PO DAILY #7 tablet 04/24/16 Unknown Rx Azithromycin [Zithromax] 250 mg PO DAILY #6 tablet 10/15/16 Unknown Rx Fexofenadine/Pseudoephedrine [Kro 1 each PO BID #60 tab.er.12h 12/10/16 Unknown Rx Allergy Rlf-D 60-120 mg Tb] Azithromycin [Zithromax Z-MARSHA] 250 mg PO DAILY #6 tab 12/25/16 Unknown Rx Ibuprofen [Motrin 800 MG tab] 800 mg PO Q8HR PRN #30 tablet 02/26/17 Unknown Rx Lisinopril/Hydrochlorothiazide 1 tab PO QDAY #30 tablet 02/26/17 Unknown Rx [Zestoretic 10-12.5 mg] Azithromycin [Zithromax Z-MARSHA] 250 mg PO QDAY #6 tablet 03/25/17 Unknown Rx Fluticasone [Flonase] 1 spray NS QDAY #1 bottle 03/25/17 Unknown Rx Ketorolac [Toradol] 10 mg PO Q6H PRN #20 tablet 03/25/17 Unknown Rx Allergies Allergy/AdvReac Type Severity Reaction Status Date / Time Penicillins Allergy Rash Verified 02/26/17 15:44 Heart Score - HEART Score History: Slightly suspicious EKG: Non-specific Age: 45-65 Risk factors: > 3 risk factors or hx of atherosclerotic disease Troponin: < normal limit HEART Score: 4 - Critical Actions Critical Actions: 4-6 pts:12-16.6% risk of adverse cardiac event. Should be admitted ED Review of Systems ROS: Stated complaint: CHEST PAIN Other details as noted in HPI Constitutional: denies: chills, fever Eyes: denies: eye pain, eye discharge, vision change ENT: denies: ear pain, throat pain Respiratory: denies: cough, shortness of breath, wheezing Cardiovascular: chest pain. denies: palpitations Endocrine: no symptoms reported Gastrointestinal: as per HPI, other (does not feel like she has a food impaction able to swallow). denies: abdominal pain, nausea, diarrhea Genitourinary: denies: urgency, dysuria, discharge Musculoskeletal: denies: back pain, joint swelling, arthralgia Skin: denies: rash, lesions Neurological: denies: headache, weakness, paresthesias Psychiatric: denies: anxiety, depression Hematological/Lymphatic: denies: easy bleeding, easy bruising ED Past Medical Hx - Past Medical History Previous Medical History?: Yes Hx Hypertension: Yes Hx CVA: No Hx Heart Attack/AMI: No Hx Congestive Heart Failure: No Hx Diabetes: No Hx Deep Vein Thrombosis: No Hx Pulmonary Embolism: No Hx GERD: No Hx Liver Disease: No Hx Renal Disease: No Hx Sickle Cell Disease: No Hx Arthritis: No Hx Headaches / Migraines: No Hx Seizures: No Hx Kidney Stones: No Hx Psychiatric Treatment: No Hx Asthma: No Hx COPD: No Hx Tuberculosis: No Hx Dementia: No Hx HIV: No Additional medical history: SINUSITIS - Surgical History Past Surgical History?: Yes Hx Coronary Stent: No Hx Open Heart Surgery: No Hx Pacemaker: No Hx Internal Defibrillator: No Hx Cholecystectomy: Yes Hx Appendectomy: No Hx Breast Surgery: No Additional Surgical History: partial hysterectomy. TUBAL LIGATION - Social History Smoking Status: Never Smoker Substance Use Type: None - Medications Home Medications: Home Medications Medication Instructions Recorded Confirmed Last Taken Type Clindamycin [Cleocin] 300 mg PO Q8H #21 cap 02/07/15 04/09/15 Unknown Rx Fluticasone Propionate [Flonase] 100 mcg NS QDAY #1 spray.susp 02/07/15 04/09/15 Unknown Rx Lisinopril/Hydrochlorothiazide 1 tab PO QDAY 02/07/15 04/09/15 02/06/15 History [Zestoretic 20-12.5 mg] Indomethacin [Indocin] 25 mg PO TID #21 capsule 04/09/15 Unknown Rx Nitrofurantoin [place]/M-Cryst 100 mg PO Q12HR #14 capsule 12/09/15 Unknown Rx [Macrobid CAP] Phenazopyridine [Pyridium] 100 mg PO TID #6 tab 12/09/15 Unknown Rx metroNIDAZOLE [Flagyl] 500 mg PO Q12HR #14 tab 12/09/15 Unknown Rx Azithromycin [Zithromax Z-MARSHA] 250 mg PO DAILY #6 tab 04/24/16 Unknown Rx Loratadine [Claritin] 10 mg PO DAILY #7 tablet 04/24/16 Unknown Rx Azithromycin [Zithromax] 250 mg PO DAILY #6 tablet 10/15/16 Unknown Rx Fexofenadine/Pseudoephedrine [Kro 1 each PO BID #60 tab.er.12h 12/10/16 Unknown Rx Allergy Rlf-D 60-120 mg Tb] Azithromycin [Zithromax Z-MARSHA] 250 mg PO DAILY #6 tab 12/25/16 Unknown Rx Ibuprofen [Motrin 800 MG tab] 800 mg PO Q8HR PRN #30 tablet 02/26/17 Unknown Rx Lisinopril/Hydrochlorothiazide 1 tab PO QDAY #30 tablet 02/26/17 Unknown Rx [Zestoretic 10-12.5 mg] Azithromycin [Zithromax Z-MARSHA] 250 mg PO QDAY #6 tablet 03/25/17 Unknown Rx Fluticasone [Flonase] 1 spray NS QDAY #1 bottle 03/25/17 Unknown Rx Ketorolac [Toradol] 10 mg PO Q6H PRN #20 tablet 03/25/17 Unknown Rx ED Physical Exam - General Limitations: No Limitations General appearance: alert, in no apparent distress, obese - Head Head exam: Present: atraumatic, normocephalic - Eye Eye exam: Present: normal appearance. Absent: scleral icterus - ENT ENT exam: Present: mucous membranes moist - Neck Neck exam: Present: normal inspection. Absent: tenderness, meningismus - Respiratory Respiratory exam: Present: normal lung sounds bilaterally. Absent: respiratory distress - Cardiovascular Cardiovascular Exam: Present: regular rate, normal rhythm. Absent: systolic murmur, diastolic murmur, rubs, gallop - GI/Abdominal GI/Abdominal exam: Present: soft, normal bowel sounds. Absent: distended, tenderness, guarding, rebound, rigid - Extremities Exam Extremities exam: Present: normal inspection, full ROM, normal capillary refill. Absent: tenderness, pedal edema, joint swelling, calf tenderness - Back Exam Back exam: Present: normal inspection - Neurological Exam Neurological exam: Present: alert, oriented X3, CN II-XII intact. Absent: motor sensory deficit - Psychiatric Psychiatric exam: Present: normal affect, normal mood - Skin Skin exam: Present: warm, dry, intact, normal color. Absent: rash ED Course Vital Signs 11/16/18 11/16/18 11/16/18 04:39 06:01 07:25 Temperature 98.1 F 98.1 F Pulse Rate 87 89 Respiratory 16 16 15 Rate Blood Pressure 148/96 148/96 Blood Pressure [Left] O2 Sat by Pulse 97 97 99 Oximetry 11/16/18 07:26 Temperature 97.5 F L Pulse Rate 70 Respiratory 15 Rate Blood Pressure Blood Pressure 140/89 [Left] O2 Sat by Pulse 99 Oximetry - Reevaluation(s) Reevaluation #1: I gave the patient Maalox Protonix and viscous lidocaine. She stated that she had partial relief. She is now a newly diagnosed diabetic. She is hypertensive and probably has dyslipidemia. There are too many risk factors for coronary artery disease to complete the workup here. She is referred to the hospitalist service for care and evaluation. 11/16/18 08:47 LINWOOD score - Linwood Score Age > 65: (0) No Aspirin use within the Past 7 Days: (0) No 3 or more CAD Risk Factors: (1) Yes 2 or more Angina events in past 24 hrs: (0) No Known CAD with more than 50% Stenosis: (0) No Elevated Cardiac Markers: (0) No ST Deviation Greater than 0.5mm: (0) No LINWOOD Score: 1 ED Medical Decision Making - Lab Data Result diagrams: 11/16/18 06:11 11/16/18 06:11 Laboratory Results - last 24 hr 11/16/18 11/16/18 06:11 06:11 WBC 6.0 RBC 5.36 H Hgb 14.5 H Hct 43.5 H MCV 81 MCH 27 L MCHC 33 RDW 12.9 L Plt Count 228 Lymph % (Auto) 43.6 H [place] % (Auto) 6.4 Eos % (Auto) 2.8 Baso % (Auto) 0.7 Lymph # 2.6 [place] # 0.4 Eos # 0.2 Baso # 0.0 Seg Neutrophils % 46.5 Seg Neutrophils # 2.8 Sodium 139 Potassium 3.5 L Chloride 95.9 L Carbon Dioxide 28 Anion Gap 19 BUN 7 Creatinine 0.7 Estimated GFR > 60 BUN/Creatinine Ratio 10 Glucose 373 H Calcium 9.9 Troponin T < 0.010 - EKG Data -: EKG Interpreted by Nm EKG shows normal: sinus rhythm Rate: normal - EKG Data Interpretation: no acute changes - Radiology Data Radiology results: pending Critical care attestation.: If time is entered above; I have spent that time in minutes in the direct care of this critically ill patient, excluding procedure time. 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
[2018-11-16] MEDS ORDERED: HumuLIN R SUB-Q ONE (08:51)
--- NOTE | 2018-11-16 09:56 | XRay Report ---
FINAL REPORT EXAM: XR CHEST 1V AP HISTORY: chest pain COMPARISON: None. TECHNIQUE: Single frontal view of the chest FINDINGS: The cardiomediastinal silhouette is normal in appearance. The lungs are clear without focal consolidation. There is no pleural effusion or pneumothorax. There is no acute soft tissue or osseous abnormality. Scoliosis of the thoracic spine. IMPRESSION: No acute cardiopulmonary disease.
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
[2018-11-16] MEDS ORDERED: ZOFRAN IV PRN (10:36)
[2018-11-16] MEDS ORDERED: TYLENOL PO PRN (10:36)
[2018-11-16] MEDS ORDERED: D50W (25GM) Syringe IV PRN (10:40)
[2018-11-16] MEDS: KCL 10MEQ/100ML 10 MEQ/100 ML BAG IV SCH ×2 (13:10→13:12)
[2018-11-16] MEDS: HumaLOG SUB-Q SCH ×3 (13:11→22:03)
[2018-11-16] MEDS: NORVASC PO SCH (13:11)
[2018-11-16] MEDS ORDERED: K-DUR PO ONE ×2 (15:03→18:00)
[2018-11-16] MEDS ORDERED: MORPHINE IV PRN (17:46)
[2018-11-16] MEDS ORDERED: NORCO 5/325 PO PRN (17:46)
--- NOTE | 2018-11-16 17:46 | Gastroenterology Consultation ---
History of Present Illness - Reason for Consult Consult date: 11/16/18 Dysphagia Requesting physician: LEYLA GONZALEZ - History of Present Illness The patient is a 48 yo female admitted with dysphagia and new onset DM. She says the dysphagia started < 5 days ago, and is a burning sensation with liquids being stuck in the mid-sternal region. She has had no impaction of food, and no emesis/hematemesis. She did start new medications recently (Macrobid) but thinks the dysphagia was before that. She did not try any antiacids, but admits to occasional heartburn. She has no abnormal loss of weight, but does have polyuria and polydipsia, presumably from the new DM. She has no thrush in the mouth/has not taken antibiotics. She has no hx of smoking, and there is a distant hx of "throat cancer" in a great uncle. She has no exertional CP or SOB. Past History Past Medical History: hypertension Past Surgical History: cholecystectomy, hysterectomy, Other (BTL) Social history: denies: smoking, alcohol abuse Family history: cancer (throat cancer, great uncle), diabetes, hypertension Medications and Allergies Allergies Allergy/AdvReac Type Severity Reaction Status Date / Time Penicillins Allergy Rash Verified 02/26/17 15:44 Home Medications Medication Instructions Recorded Confirmed Last Taken Type Amlodipine Besylate [Norvasc] 10 mg PO QDAY 11/16/18 11/16/18 Unknown History Nitrofurantoin Monohyd/M-Cryst 100 mg PO QDAY 11/16/18 11/16/18 Unknown History [Macrobid 100 mg Capsule] Active Meds: Active Medications Acetaminophen (Tylenol) 650 mg PO Q6H PRN PRN Reason: Non Cardiac Pain or Temp>100.5 Last Admin: 11/16/18 13:25 Dose: 650 mg Documented by: Amlodipine Besylate (Norvasc) 10 mg PO QDAY [facility] Last Admin: 11/16/18 13:11 Dose: Not Given Documented by: Dextrose (D50w (25gm) Syringe) 50 ml IV PRN PRN PRN Reason: Hypoglycemia Insulin Human Lispro (Humalog) 0 unit SUB-Q [facility]; Protocol Last Admin: 11/16/18 17:24 Dose: 8 unit Documented by: Ondansetron HCl (Zofran) 4 mg IV Q4H PRN PRN Reason: Nausea And Vomiting Pantoprazole Sodium (Protonix) 40 mg IV BID [facility] Potassium Chloride (K-Dur) 40 meq PO ONCE ONE Stop: 11/16/18 18:01 Last Admin: 11/16/18 17:23 Dose: 40 meq Documented by: I HAVE REVIEWED AND RECONCILED MEDICATIONS Review of Systems - Review of Systems All systems: negative (as noted in the HPI) Exam - Constitutional Vital Signs: Temp Pulse Resp BP Pulse Ox 98.2 F 81 18 122/75 96 11/16/18 17:10 11/16/18 17:10 11/16/18 17:10 11/16/18 17:10 11/16/18 17:10 General appearance: no acute distress - EENT Eyes: PERRL, EOM intact ENT: hearing intact, clear oral mucosa - Neck Neck: supple, normal ROM - Respiratory Respiratory effort: normal Respiratory: bilateral: CTA - Cardiovascular Rhythm: regular Heart Sounds: Present: S1 & S2 Extremities: no ischemia, No edema - Gastrointestinal General gastrointestinal: Present: soft, non-tender, non-distended - Integumentary Integumentary: Present: clear, warm, dry - Neurologic Neurological: alert and oriented x3 - Labs CBC & Chem 7: 11/16/18 06:11 11/16/18 06:11 Lab Results: Laboratory Results - last 24 hr 11/16/18 11/16/18 11/16/18 06:11 06:11 09:14 WBC 6.0 RBC 5.36 H Hgb 14.5 H Hct 43.5 H MCV 81 MCH 27 L MCHC 33 RDW 12.9 L Plt Count 228 Lymph % (Auto) 43.6 H [place] % (Auto) 6.4 Eos % (Auto) 2.8 Baso % (Auto) 0.7 Lymph # 2.6 [place] # 0.4 Eos # 0.2 Baso # 0.0 Seg Neutrophils % 46.5 Seg Neutrophils # 2.8 Sodium 139 Potassium 3.5 L Chloride 95.9 L Carbon Dioxide 28 Anion Gap 19 BUN 7 Creatinine 0.7 Estimated GFR > 60 BUN/Creatinine Ratio 10 Glucose 373 H POC Glucose Hemoglobin A1c Calcium 9.9 Troponin T < 0.010 < 0.010 11/16/18 11/16/18 11/16/18 12:51 12:51 12:59 WBC RBC Hgb Hct MCV MCH MCHC RDW Plt Count Lymph % (Auto) [place] % (Auto) Eos % (Auto) Baso % (Auto) Lymph # [place] # Eos # Baso # Seg Neutrophils % Seg Neutrophils # Sodium Potassium Chloride Carbon Dioxide Anion Gap BUN Creatinine Estimated GFR BUN/Creatinine Ratio Glucose POC Glucose 289 H Hemoglobin A1c 14.6 H Calcium Troponin T < 0.010 Assessment and Plan - Patient Problems (1) Dysphagia Current Visit: Yes Status: Acute Plan to address problem: - Likely pill esophagitis, viral infection, yared, or acid-reflux related. - Will continue protonix. - Upper endoscopy to further evaluate.
[2018-11-16] MEDS: PROTONIX IV SCH (22:02)
[2018-11-17 05:13] LABS: Hematocrit 39.8 % (30.3-42.9); Hemoglobin 13.7 gm/dl (10.1-14.3); Mean Corpuscular HGB Conc 34 % (30-34); Mean Corpuscular Volume 80 fl (79-97); Platelet Count 217 K/mm3 (140-440); Red Blood Count 4.96 M/mm3 (3.65-5.03)
[2018-11-17 05:29] LABS: BUN/Creatinine Ratio 17; Blood Urea Nitrogen 10 mg/dL (7-17); Calcium 8.9 mg/dL (8.4-10.2); Hemolysis Index 13
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
[2018-11-17] MEDS: HumaLOG SUB-Q SCH ×4 (08:59→22:23)
[2018-11-17] MEDS: PROTONIX IV SCH (09:01)
[2018-11-17] MEDS: NORVASC PO SCH (10:00)
[2018-11-17] MEDS: KCL 10MEQ/100ML 10 MEQ/100 ML BAG IV SCH ×2 (12:12→15:34)
[2018-11-17] MEDS ORDERED: NACL 0.9% 500 ML 500 ML IV SCH (13:00)
--- NOTE | 2018-11-17 14:04 | Consultation ---
History of Present Illness Consult date: 11/17/18 Requesting physician: LEYLA GONZALEZ Consult reason: other (abnormal ekg) History of present illness: The patient is a 48 yo female with a past medical history of HTN and obesity. She is previously unknown to our practice. She presented with complaints of dysphagia since Saturday. She states that when she drinks liquids, she experiences a burning sensation with liquids being stuck in the mid-sternal region. She denies any chest pain unrelated to her difficulty swallowing, SOB, palpitations, n/v, diaphoresis, dizziness or syncope. She denies any prior cardiac issues, including CAD, AMI or HF. She has been newly diagnosed with diabetes on this admission. She is scheduled for EGD today. She was noted to have abnormal ECG and thus cardiology has been consulted. Past History Past Medical History: hypertension Past Surgical History: cholecystectomy, hysterectomy, Other (BTL) Social history: denies: smoking, alcohol abuse Family history: cancer (throat cancer, great uncle), diabetes, hypertension Medications and Allergies Allergies Allergy/AdvReac Type Severity Reaction Status Date / Time Penicillins Allergy Rash Verified 02/26/17 15:44 Home Medications Medication Instructions Recorded Confirmed Last Taken Type Amlodipine Besylate [Norvasc] 10 mg PO QDAY 11/16/18 11/16/18 Unknown History Nitrofurantoin Monohyd/M-Cryst 100 mg PO QDAY 11/16/18 11/16/18 Unknown History [Macrobid 100 mg Capsule] Active Meds: Active Medications Acetaminophen (Tylenol) 650 mg PO Q6H PRN PRN Reason: Non Cardiac Pain or Temp>100.5 Last Admin: 11/16/18 13:25 Dose: 650 mg Documented by: Acetaminophen/Hydrocodone Bitart ([place] 5/325) 1 each PO Q4H PRN PRN Reason: Pain, Moderate (4-6) Last Admin: 11/16/18 20:07 Dose: 1 each Documented by: Amlodipine Besylate (Norvasc) 10 mg PO QDAY [facility] Last Admin: 11/16/18 13:11 Dose: Not Given Documented by: Dextrose (D50w (25gm) Syringe) 50 ml IV PRN PRN PRN Reason: Hypoglycemia Fluticasone Propionate (Flonase) 100 mcg NS QDAY [facility] Sodium Chloride (Nacl 0.9% 500 Ml) 500 mls @ 50 mls/hr IV DIRECT [facility] Insulin Glargine (Lantus) 10 units SUB-Q QAMDIAB [facility] Insulin Human Lispro (Humalog) 0 unit SUB-Q ACHS [facility]; Protocol Last Admin: 11/17/18 08:59 Dose: 6 unit Documented by: Morphine Sulfate (Morphine) 2 mg IV Q4H PRN PRN Reason: Pain , Severe (7-10) Ondansetron HCl (Zofran) 4 mg IV Q4H PRN PRN Reason: Nausea And Vomiting Pantoprazole Sodium (Protonix) 40 mg IV BID [facility] Last Admin: 11/17/18 09:01 Dose: 40 mg Documented by: Review of Systems Constitutional: no weight loss, no weight gain, no fever, no chills, no sweats Ears, nose, mouth and throat: no ear pain, no nose pain, no sinus pressure, no sinus pain Cardiovascular: high blood pressure, no chest pain, no orthopnea, no palpitations, no rapid/irregular heart beat, no edema, no syncope, no lightheadedness, no shortness of breath, no dyspnea on exertion, no leg edema Respiratory: no cough, no congestion, no wheezing, no pain on inspiration Gastrointestinal: other (dysphagia), no abdominal pain, no nausea, no vomiting, no diarrhea, no constipation, no change in bowel habits Genitourinary Female: no pelvic pain, no flank pain, no dysuria, no urinary frequency, no urgency Musculoskeletal: no neck stiffness, no neck pain, no shooting arm pain, no arm numbness/tingling, no low back pain, no shooting leg pain Integumentary: no rash, no pruritis, no redness, no sores, no wounds Neurological: no head injury, no paralysis, no weakness, no parathesias, no numbness, no tingling, no seizures, no syncope Psychiatric: no anxiety Endocrine: polydipsia, polyuria, no cold intolerance, no heat intolerance Hematologic/Lymphatic: no easy bruising, no easy bleeding Allergic/Immunologic: no urticaria, no wheezing Physical Examination Vital Signs Temp Pulse Resp BP Pulse Ox 98.1 F 87 16 148/96 97 11/16/18 04:39 11/16/18 04:39 11/16/18 04:39 11/16/18 04:39 11/16/18 04:39 General appearance: no acute distress HEENT: Positive: PERRL, Normocephaly, Mucus Membranes Moist Neck: Positive: neck supple, trachea midline Cardiac: Positive: Reg Rate and Rhythm, S1/S2, Systolic Murmur Lungs: Positive: clear to auscultation Neuro: Positive: Grossly Intact Abdomen: Positive: Soft. Negative: Tender Skin: Negative: Rash Musculoskeletal: No Pain Extremities: Absent: edema Results 11/17/18 04:34 11/17/18 04:34 CBC 11/17/18 Range/Units 04:34 WBC 5.8 (4.5-11.0) K/mm3 RBC 4.96 (3.65-5.03) M/mm3 Hgb 13.7 (10.1-14.3) gm/dl Hct 39.8 (30.3-42.9) % Plt Count 217 (140-440) K/mm3 Comprehensive Metabolic Panel 11/17/18 Range/Units 04:34 Sodium 138 (137-145) mmol/L Potassium 3.3 L (3.6-5.0) mmol/L Chloride 99.8 (98-107) mmol/L Carbon Dioxide 28 (22-30) mmol/L BUN 10 (7-17) mg/dL Creatinine 0.6 L (0.7-1.2) mg/dL Glucose 367 H (65-100) mg/dL Calcium 8.9 (8.4-10.2) mg/dL - Imaging and Cardiology Stress echo: report reviewed, image reviewed EKG interpretations - Telemetry EKG Rhythm: Sinus Rhythm - EKG Sinus rhythms and dysrhythmias: sinus rhythm Repolarization changes or abnormalities: repolarization abn secondary to ventricular hypertrophy Assessment and Plan ECG reviewed, SR with no acute ischemic changes, suspect abnormalities are normal variant for this patient. AMI ruled out. Repeat ECG in AM. No indication for ischemic evaluation or echo at this time. For EGD today. The patient has been seen in conjunction with Dr. Calderón who agrees with the assessment and plan of care. - Patient Problems (1) Abnormal EKG Current Visit: Yes Status: Acute (2) Dysphagia Current Visit: Yes Status: Acute (3) Essential hypertension Current Visit: Yes Status: Chronic (4) Diabetes Current Visit: Yes Status: Chronic (5) Hypokalemia Current Visit: Yes Status: Acute (6) Obesity Current Visit: Yes Status: Chronic
[2018-11-17] MEDS ORDERED: NACL 0.9% 1000 ML 1,000 ML IV SCH (15:00)
--- NOTE | 2018-11-17 16:26 | Anesthesia Consultation ---
Anesthesia Consult and Med Hx Date of service: 11/17/18 - Airway Anesthetic Teeth Evaluation: Good, Caps (berger cap #8) ROM Head & Neck: Adequate Mental/Hyoid Distance: Adequate Mallampati Class: Class II - Pre-Operative Health Status ASA Pre-Surgery Classification: ASA3 Proposed Anesthetic Plan: MAC - Pulmonary Hx Asthma: No COPD: No Hx Pneumonia: No - Cardiovascular System Hx Hypertension: Yes Hx Coronary Artery Disease: No (chest pain, ruled out by cardiology) Hx Heart Attack/AMI: No Hx Pacemaker: No Hx Internal Defibrillator: No - Central Nervous System Hx Seizures: No Hx Psychiatric Problems: No - Endocrine Hx Renal Disease: No Hx End Stage Renal Disease: No Hx Liver Disease: No Hx Insulin Dependent Diabetes: Yes (newly diagnosed) Hx Hypothyroidism: No Hx Hyperthyroidism: No - Hematic Hx Sickle Cell Disease: No - Other Systems Hx Obesity: Yes (BMI 39.1)
--- NOTE | 2018-11-17 16:27 | Anesthesia Day of Surgery ---
Anesthesia Day of Surgery - Day of Surgery Patient Examined: Yes Patient H&P Reviewed: Yes Patient is NPO: Yes
[2018-11-17] MEDS ORDERED: DIPRIVAN 10 MG/ML IV ONE (16:32)
--- NOTE | 2018-11-17 16:46 | Post Operative Note ---
Pre-op diagnosis: Dysphagia Post-op diagnosis: other (HH, Esophagitis) Findings: 1. Normal duodenum 2. Small hiatal hernia (<2cm) 3. Otherwise normal stomach 4. Erythema lower third of esophagus/LA Grade A esophagitis; cold biopsy Procedure: EGD with cold biopsy Anesthesia: MAC Surgeon: LUDWIG FRIEDMAN Estimated blood loss: minimal Pathology: list (1. Lower third of the esophagus) Specimen disposition: to lab Condition: stable Disposition: floor (Recs: 1. Continue daily protonix. 2. Diabetic diet with weight loss. 3. OK to d/c home and f/u in the clinic for Pathology results.)
[2018-11-17] MEDS: FLONASE NS SCH (17:47)
[2018-11-17] MEDS: LANTUS SUB-Q SCH (18:46)
--- NOTE | 2018-11-17 19:51 | Operative Report ---
PROCEDURE PERFORMED: Esophagogastroduodenoscopy with cold biopsy. PREOPERATIVE DIAGNOSIS: Dysphagia. POSTOPERATIVE DIAGNOSES: Small hiatal hernia and esophagitis. ENDOSCOPIST: Simon Hatfield MD INSTRUMENT: [email or web address] video endoscope. MEDICATIONS: MAC anesthesia by Anesthesia Services. COMPLICATIONS: No apparent complications. ESTIMATED BLOOD LOSS: Minimal. SPECIMENS: Lower third of the esophagus. IMPLANTS: None. ASSISTANTS: None. CONDITION AT COMPLETION: Stable. TECHNIQUE: The patient was informed of the risks and benefits of the procedure. She signed the informed consent to proceed. She was placed in left lateral decubitus position. The above sedative medications were given. Her vital signs remained stable throughout the procedure. The instrument was advanced from the mouth to the second portion of the duodenum under direct visualization. At that point, the bowel was insufflated and the endoscope was slowly withdrawn. FINDINGS: 1. Normal duodenum. 2. Small hiatal hernia, less than 2 cm. 3. Otherwise, normal stomach. 4. Erythema in the lower third of the esophagus consistent with LA grade A erosive esophagitis. a. Cold biopsies were taken. b. No evidence of focal narrowing or stenosis. c. No evidence of significant Michelle. RECOMMENDATIONS: 1. Continue daily Protonix. 2. Diabetic diet with weight loss encouraged. 3. Okay to discharge the patient home and follow up in the clinic for pathology results. JOB# [id number] SERAFIN/NTS
[2018-11-18 05:59] LABS: Hematocrit 39.6 % (30.3-42.9); Hemoglobin 13.2 gm/dl (10.1-14.3); Mean Corpuscular HGB Conc 33 % (30-34); Mean Corpuscular Volume 82 fl (79-97); Platelet Count 204 K/mm3 (140-440); Red Blood Count 4.82 M/mm3 (3.65-5.03); Red Cell Distribution Width 13.2 % (13.2-15.2)
[2018-11-18 06:21] LABS: BUN/Creatinine Ratio 15; Blood Urea Nitrogen 9 mg/dL (7-17); Calcium 8.3 mg/dL (8.4-10.2); Hemolysis Index 5
[2018-11-18 07:20] VITALS: BP 125/77
[2018-11-18] MEDS: LANTUS SUB-Q SCH (09:05)
[2018-11-18] MEDS: FLONASE NS SCH (09:05)
[2018-11-18] MEDS: HumaLOG SUB-Q SCH ×2 (09:06→12:23)
[2018-11-18] MEDS: NORVASC PO SCH (09:06)
[2018-11-18] MEDS ORDERED: PROTONIX PO SCH (10:00)
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
[2018-11-18] MEDS ORDERED: K-DUR PO ONE (12:00)
--- NOTE | 2018-11-18 12:08 | Progress Note ---
Assessment and Plan ECG reviewed, stable, SR with no acute ischemic changes, suspect abnormalities are normal variant for this patient. AMI ruled out. No indication for ischemic evaluation or echo at this time. S/p EGD yesterday. GI recs noted. Currently stable cardiac status. Pt may discharge home from cardiology standpoint. The patient has been seen in conjunction with Dr. Calderón who agrees with the assessment and plan of care. - Patient Problems (1) Abnormal EKG Current Visit: Yes Status: Acute (2) Dysphagia Current Visit: Yes Status: Acute (3) Essential hypertension Current Visit: Yes Status: Chronic (4) Diabetes Current Visit: Yes Status: Chronic (5) Hypokalemia Current Visit: Yes Status: Acute (6) Obesity Current Visit: Yes Status: Chronic Subjective Date of service: 11/18/18 Principal diagnosis: dysphagia Interval history: pt resting comfortably in bed, no current complaints. Objective Last Vital Signs Temp 99.1 F 11/18/18 06:33 Pulse 69 11/18/18 06:33 Resp 20 11/18/18 06:33 BP 125/77 11/18/18 06:33 Pulse Ox 98 11/18/18 06:33 - Physical Examination General: No Apparent Distress HEENT: Positive: PERRL, Normocephaly, Mucus Membranes Moist Neck: Positive: neck supple, trachea midline Cardiac: Positive: Reg Rate and Rhythm, S1/S2 Lungs: Positive: clear to auscultation Neuro: Positive: Grossly Intact Abdomen: Positive: Soft. Negative: Tender Skin: Negative: Rash Musculoskeletal: No Pain Extremities: Absent: edema - Labs and Meds CBC 11/18/18 Range/Units 04:11 WBC 6.1 (4.5-11.0) K/mm3 RBC 4.82 (3.65-5.03) M/mm3 Hgb 13.2 (10.1-14.3) gm/dl Hct 39.6 (30.3-42.9) % Plt Count 204 (140-440) K/mm3 Comprehensive Metabolic Panel 11/18/18 Range/Units 04:11 Sodium 141 (137-145) mmol/L Potassium 3.4 L (3.6-5.0) mmol/L Chloride 103.7 (98-107) mmol/L Carbon Dioxide 25 (22-30) mmol/L BUN 9 (7-17) mg/dL Creatinine 0.6 L (0.7-1.2) mg/dL Glucose 206 H (65-100) mg/dL Calcium 8.3 L (8.4-10.2) mg/dL - Imaging and Cardiology Stress echo: report reviewed, image reviewed - EKG Sinus rhythms and dysrhythmias: sinus rhythm Repolarization changes or abnormalities: repolarization abn secondary to ventricular hypertrophy
== END 2018-11-18 13:30 | disposition home or self-care (01) | DRG 381 ==
LOC: ED 04:32 → 4A 08:52 → 3A 10:19
PROVIDERS: ADMIT Internal Medicine; ATTEND Internal Medicine
PROC: 0DB38ZX Excision of Lower Esophagus, Via Natural or Artificial Opening Endoscopic, Diagnostic (ICD-10-PCS; principal; 2018-11-17)
DX: K22.10 Ulcer of esophagus without bleeding (principal); N39.0 Urinary tract infection, site not specified; K21.0 Gastro-esophageal reflux disease with esophagitis; E87.6 Hypokalemia; E11.65 Type 2 diabetes mellitus with hyperglycemia; I10 Essential (primary) hypertension; R13.10 Dysphagia, unspecified; E66.9 Obesity, unspecified; K44.9 Diaphragmatic hernia without obstruction or gangrene; R94.31 Abnormal electrocardiogram [ECG] [EKG]; R35.8 Other polyuria; R63.1 Polydipsia; Z79.4 Long term (current) use of insulin; Z68.39 Body mass index [BMI] 39.0-39.9, adult; Z90.49 Acquired absence of other specified parts of digestive tract; Z80.8 Family history of malignant neoplasm of other organs or systems; Z83.3 Family history of diabetes mellitus; Z82.49 Family history of ischemic heart disease and other diseases of the circulatory system; Z98.51 Tubal ligation status; Z88.0 Allergy status to penicillin; Z79.899 Other long term (current) drug therapy; Z90.711 Acquired absence of uterus with remaining cervical stump
CPT/HCPCS: 36415; 71045; 80048; 82962; 83036; 83735; 84443; 84484; 85025; 85027; 88305; 88312; 93005; 93010; 96372; G0378; C9113; J1815; J2704; J3480; J7030; J7040

== ENCOUNTER 2018-12-14 21:56 | Emergency (ER) | payer OTHER ==
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
[2018-12-15] MEDS ORDERED: TORADOL IM ONE (01:07)
--- NOTE | 2018-12-15 01:49 | Vascular Lab Report ---
FINAL REPORT EXAM: VL VENOUS DUPLEX LE RT HISTORY: swelling and pain with varicosity TECHNIQUE: Doppler compression imaging was obtained of the deep venous system of the right lower ext remity extending from common femoral vein through the popliteal vein. The posterior tibial vein of th e calf was also examined. Augmentation maneuvers and waveforms were recorded. FINDINGS: All veins compress normally. The waveforms appear normal. IMPRESSION: Normal exam. No evidence of DVT in the right lower extremity.
[2018-12-15 02:38] VITALS: BP 133/82
== END 2018-12-15 02:36 | disposition home or self-care (01) ==
LOC: ED 21:56
DX: M25.561 Pain in right knee (principal); I10 Essential (primary) hypertension; E11.9 Type 2 diabetes mellitus without complications; F17.200 Nicotine dependence, unspecified, uncomplicated; Z90.711 Acquired absence of uterus with remaining cervical stump; Z98.51 Tubal ligation status; Z88.0 Allergy status to penicillin; Z79.4 Long term (current) use of insulin; Z90.49 Acquired absence of other specified parts of digestive tract
CPT/HCPCS: 93971; 96372; 99284; J1885

== ENCOUNTER 2019-06-12 23:38 | Emergency (ER) | payer OTHER ==
[2019-06-13 00:48] LABS: Basophils % (Auto) 0.4 % (0.0-1.8); Eosinophils # (Auto) 0.1 K/mm3 (0.0-0.4); Hematocrit 38.4 % (30.3-42.9); Hemoglobin 13.1 gm/dl (10.1-14.3); Lymphocytes # (Auto) 2.4 K/mm3 (1.2-5.4); Lymphocytes % (Auto) 23.6 % (13.4-35.0); Mean Corpuscular HGB Conc 34 % (30-34); Mean Corpuscular Volume 83 fl (79-97); Monocytes # (Auto) 0.5 K/mm3 (0.0-0.8); Monocytes % (Auto) 5.2 % (0.0-7.3); Platelet Count 306 K/mm3 (140-440); Red Blood Count 4.65 M/mm3 (3.65-5.03); Red Cell Distribution Width 13.9 % (13.2-15.2)
[2019-06-13 01:00] LABS: Bacteria,Urine 1+ /HPF (Negative); Bilirubin,Urine NEG (Negative); Blood,Urine SM (Negative); Color,Urine Yellow (Yellow); Mucus,Urine FEW /HPF; Protein,Urine <15 mg/dL mg/dL (Negative); Urobilinogen,Urine < 2.0 mg/dL (<2.0)
[2019-06-13 01:05] LABS: Alanine Aminotransferase 9 units/L (7-56); BUN/Creatinine Ratio 23; Blood Urea Nitrogen 16 mg/dL (7-17); Hemolysis Index 9
[2019-06-13] MEDS ORDERED: IBUPROFEN PO ONE (02:38)
--- NOTE | 2019-06-13 02:56 | Emergency Department Report ---
ED Abdominal Pain HPI - General Chief Complaint: Abdominal Pain Stated Complaint: ABD PAINS Time Seen by Provider: 06/13/19 02:37 Source: patient Mode of arrival: Ambulatory Limitations: No Limitations - History of Present Illness Initial Comments: 48-year-old -Citizen Of [place] female presents to the emergency room for lower abdominal pain 2 days. Patient reports that the pain is constant. Patient denies any nausea no vomiting denies any diarrhea or constipation. Patient denies any vaginal bleeding vaginal discharge dysuria. She reports she is s exually active with males unprotected. She reports that the pain is worse when she coughs. She reports that the pain is throbbing in nature. Patient reports she took Tylenol yesterday and ibuprofen today. MD Complaint: abdominal pain Onset/Timin -: days(s) Location: suprapubic Radiation: suprapubic Migration to: no migration Severity scale (0 -10): 7 Quality: aching, other (probably) Consistency: constant Improves With: nothing Worsens With: other (cough) Associated Symptoms: denies other symptoms - Related Data Previous Rx's Medication Instructions Recorded Last Taken Type Acetaminophen [Acetaminophen TAB] 650 mg PO Q6H PRN #15 tablet 11/18/18 Unknown Rx Amlodipine Besylate [Norvasc] 10 mg PO QDAY #30 tablet 11/18/18 Unknown Rx Fluticasone [Flonase] 100 mcg NS QDAY PRN 3 Days #1 11/18/18 Unknown Rx bottle Insulin Glargine,Hum.rec.anlog 12 unit SQ QAM #1 insuln.pen 11/18/18 Unknown Rx [Basaglar Kwikpen U-100] Insulin Regular, Human [Novolin R] 1 dose SQ ACHS PRN #1 vial 11/18/18 Unknown Rx Pantoprazole [Protonix TAB] 40 mg PO QDAY #30 tablet 11/18/18 Unknown Rx Potassium Chloride 10 meq PO BID #60 tablet.er 11/18/18 Unknown Rx Ibuprofen [Motrin 800 MG tab] 800 mg PO Q8HR PRN #21 tablet 06/13/19 Unknown Rx Allergies Allergy/AdvReac Type Severity Reaction Status Date / Time Penicillins Allergy Rash Verified 02/26/17 15:44 ED Review of Systems ROS: Stated complaint: ABD PAINS Other details as noted in HPI ED Past Medical Hx - Past Medical History Previous Medical History?: Yes Hx Hypertension: Yes Hx CVA: No Hx Heart Attack/AMI: No Hx Congestive Heart Failure: No Hx Diabetes: Yes (this admission) Hx Deep Vein Thrombosis: No Hx Pulmonary Embolism: No Hx GERD: No Hx Liver Disease: No Hx Renal Disease: No Hx Sickle Cell Disease: No Hx Arthritis: No Hx Headaches / Migraines: No Hx Seizures: No Hx Kidney Stones: No Hx Psychiatric Treatment: No Hx Asthma: No Hx COPD: No Hx Tuberculosis: No Hx Dementia: No Hx HIV: No Additional medical history: SINUSITIS,RIGHT KNEE INJURY 07/2018 - Surgical History Past Surgical History?: Yes Hx Coronary Stent: No Hx Open Heart Surgery: No Hx Pacemaker: No Hx Internal Defibrillator: No Hx Cholecystectomy: Yes (1996) Hx Appendectomy: No Hx Breast Surgery: No Additional Surgical History: partial hysterectomy. TUBAL LIGATION - Social History Smoking Status: Never Smoker Substance Use Type: None - Medications Home Medications: Home Medications Medication Instructions Recorded Confirmed Last Taken Type Acetaminophen [Acetaminophen TAB] 650 mg PO Q6H PRN #15 tablet 11/18/18 Unknown Rx Amlodipine Besylate [Norvasc] 10 mg PO QDAY #30 tablet 11/18/18 Unknown Rx Fluticasone [Flonase] 100 mcg NS QDAY PRN 3 Days #1 11/18/18 Unknown Rx bottle Insulin Glargine,Hum.rec.anlog 12 unit SQ QAM #1 insuln.pen 11/18/18 Unknown Rx [Basaglar Kwikpen U-100] Insulin Regular, Human [Novolin R] 1 dose SQ ACHS PRN #1 vial 11/18/18 Unknown Rx Pantoprazole [Protonix TAB] 40 mg PO QDAY #30 tablet 11/18/18 Unknown Rx Potassium Chloride 10 meq PO BID #60 tablet.er 11/18/18 Unknown Rx Ibuprofen [Motrin 800 MG tab] 800 mg PO Q8HR PRN #21 tablet 06/13/19 Unknown Rx ED Physical Exam - General Limitations: No Limitations General appearance: alert, in no apparent distress - Head Head exam: Present: atraumatic, normocephalic - Eye Eye exam: Present: normal appearance - ENT ENT exam: Present: mucous membranes moist - Neck Neck exam: Present: normal inspection - Respiratory Respiratory exam: Present: normal lung sounds bilaterally. Absent: respiratory distress - Cardiovascular Cardiovascular Exam: Present: regular rate, normal rhythm. Absent: systolic murmur, diastolic murmur, rubs, gallop - GI/Abdominal GI/Abdominal exam: Present: soft, distended (pelvic), normal bowel sounds - Extremities Exam Extremities exam: Present: normal inspection - Back Exam Back exam: Present: normal inspection - Neurological Exam Neurological exam: Present: alert, oriented X3 - Psychiatric Psychiatric exam: Present: normal affect, normal mood - Skin Skin exam: Present: warm, dry, intact, normal color. Absent: rash ED Course Vital Signs 06/12/19 06/13/19 06/13/19 23:50 02:41 06:01 Temperature 98.2 F Pulse Rate 115 H 86 Respiratory 18 16 16 Rate Blood Pressure 130/91 Blood Pressure 145/95 [Right] O2 Sat by Pulse 100 100 Oximetry ED Medical Decision Making - Lab Data Result diagrams: 06/13/19 00:26 06/13/19 00:26 - Radiology Data Radiology results: report reviewed Patient: LIZ CONCEPCION MR#: [id number] : 1970 Acct:[id number] Age/Sex: 48 / F ADM Date: 06/12/19 Loc: ED Attending Dr: Ordering Physician: MIK ZAIDI Date of Service: 06/13/19 Procedure(s): US pelvic complete Accession Number(s): [id number] cc: MIK ZAIDI Transabdominal pelvic ultrasound INDICATION: Pelvic pain FINDINGS: The uterus and right ovary are not seen. Left ovary measures 3.5 x 3.3 x 1.7 cm and appears normal. No cysts, masses or torsion. There is no free fluid seen. No abnormality demonstrated. Signer Name: Rosas Ponce MD Signed: 06/13/2019 3:22 AM Workstation Name: [id number] Transcribed By: LUCILA Dictated By: Rosas Ponce MD Electronically Authenticated By: Rosas Ponce MD Signed Date/Time: 06/13/19321 DD/ 0 TD/TT: - Medical Decision Making 48-year-old -Citizen Of [place] female presents to the emergency room for lower abdominal pain 2 days. Patient reports that the pain is constant. Patient denies any nausea no vomiting denies any diarrhea or constipation. Patient denies any vaginal bleeding vaginal discharge dysuria. She reports she is sexually active with males unprotected. She reports that the pain is worse when she coughs. She reports that the pain is throbbing in nature. Patient reports she took Tylenol yesterday and ibuprofen today. Critical care attestation.: If time is entered above; I have spent that time in minutes in the direct care of this critically ill patient, excluding procedure time. ED Disposition Clinical Impression: Abdominal pain Disposition: DC- TO HOME OR SELFCARE Is pt being admited?: No Does the pt Need Aspirin: No Condition: Stable Instructions: Abdominal Pain (ED) Additional Instructions: Ultrasound was negative labs are stable please follow-up with your primary care provider and center human resources manager. I have listed her information below for your convenience. Prescriptions: Ibuprofen [Motrin 800 MG tab] 800 mg PO Q8HR PRN #21 tablet PRN Reason: Pain , Severe (7-10) Referrals: [facility] [Provider Group] - 3-5 Days
[2019-06-13] MEDS ORDERED: NACL 0.9% 1000 ML 1,000 ML IV ONE (02:59)
--- NOTE | 2019-06-13 03:27 | Ultrasound Report ---
Transabdominal pelvic ultrasound INDICATION: Pelvic pain FINDINGS: The uterus and right ovary are not seen. Left ovary measures 3.5 x 3.3 x 1.7 cm and appears normal. No cysts, masses or torsion. There is no free fluid seen. No abnormality demonstrated. Signer Name: Rosas Ponce MD Signed: 06/13/2019 3:22 AM Workstation Name: [id number]
[2019-06-13 06:02] VITALS: BP 145/95
== END 2019-06-13 05:35 | disposition home or self-care (01) ==
LOC: ED 23:38
DX: R10.2 Pelvic and perineal pain (principal); I10 Essential (primary) hypertension; E11.9 Type 2 diabetes mellitus without complications; Z98.51 Tubal ligation status; Z90.710 Acquired absence of both cervix and uterus; Z90.49 Acquired absence of other specified parts of digestive tract; Z79.899 Other long term (current) drug therapy; Z88.0 Allergy status to penicillin
CPT/HCPCS: 36415; 76856; 80053; 81001; 85025; 99284; J7030

== ENCOUNTER 2019-12-27 05:41 | Emergency (ER) | payer OTHER ==
[2019-12-27 07:46] LABS: Basophils % (Auto) 0.6 % (0.0-1.8); Eosinophils # (Auto) 0.4 K/mm3 (0.0-0.4); Eosinophils % (Auto) 4.6 % (0.0-4.3); Hematocrit 40.5 % (30.3-42.9); Hemoglobin 13.9 gm/dl (10.1-14.3); Lymphocytes # (Auto) 2.9 K/mm3 (1.2-5.4); Lymphocytes % (Auto) 35.9 % (13.4-35.0); Mean Corpuscular HGB Conc 34 % (30-34); Mean Corpuscular Volume 79 fl (79-97); Monocytes # (Auto) 0.6 K/mm3 (0.0-0.8); Monocytes % (Auto) 7.9 % (0.0-7.3); Platelet Count 336 K/mm3 (140-440); Red Cell Distribution Width 13.1 % (13.2-15.2)
[2019-12-27 08:06] LABS: Calcium 9.9 mg/dL (8.4-10.2)
--- NOTE | 2019-12-27 10:16 | Emergency Department Report ---
ED N/V/D HPI - General Chief complaint: Hyperglycemia Stated complaint: NAUSEA/HIGH BLOOD GLUCOSE Time Seen by Provider: 12/27/19 10:10 Source: patient Mode of arrival: Ambulatory Limitations: No Limitations - History of Present Illness Initial comments: Mrs. Hutchins is a 49 yo female with hx of GERD, DM, HTN who presents with nausea. She was concerned about her sugar levels. She has been compliant with her insulin therapy. Denies abdominal pain. Denies vomiting. One year ago, prescribed potassium and protonix therapy. No longer taking these medications. MD complaint: nausea -: Gradual, days(s) (2) Associated Abdominal Pain: No Severity: mild Consistency: intermittent Improves with: none Worsens with: none Associated Symptoms: denies other symptoms - Related Data Previous Rx's Medication Instructions Recorded Last Taken Type Acetaminophen [Acetaminophen TAB] 650 mg PO Q6H PRN #15 tablet 11/18/18 Unknown Rx Amlodipine Besylate [Norvasc] 10 mg PO QDAY #30 tablet 11/18/18 Unknown Rx Fluticasone [Flonase] 100 mcg NS QDAY PRN 3 Days #1 11/18/18 Unknown Rx bottle Insulin Glargine,Hum.rec.anlog 12 unit SQ QAM #1 insuln.pen 11/18/18 Unknown Rx [Basaglar Kwikpen U-100] Insulin Regular, Human [Novolin R] 1 dose SQ ACHS PRN #1 vial 11/18/18 Unknown Rx Pantoprazole [Protonix TAB] 40 mg PO QDAY #30 tablet 11/18/18 Unknown Rx Potassium Chloride 10 meq PO BID #60 tablet.er 11/18/18 Unknown Rx Ibuprofen [Motrin 800 MG tab] 800 mg PO Q8HR PRN #21 tablet 06/13/19 Unknown Rx Potassium Chloride [K-Dur] 2 tab PO QDAY 30 Days #60 tablet 12/27/19 Unknown Rx Promethazine [Phenergan] 25 mg PO Q6HR PRN #10 tab 12/27/19 Unknown Rx Allergies Allergy/AdvReac Type Severity Reaction Status Date / Time Penicillins Allergy Rash Verified 02/26/17 15:44 ED Review of Systems ROS: Stated complaint: NAUSEA/HIGH BLOOD GLUCOSE Other details as noted in HPI Comment: All other systems reviewed and negative Constitutional: denies: fever, malaise Respiratory: denies: cough, shortness of breath Cardiovascular: denies: chest pain Gastrointestinal: nausea ED Past Medical Hx - Past Medical History Previous Medical History?: Yes Hx Hypertension: Yes Hx CVA: No Hx Heart Attack/AMI: No Hx Congestive Heart Failure: No Hx Diabetes: Yes (this admission) Hx Deep Vein Thrombosis: No Hx Pulmonary Embolism: No Hx GERD: No Hx Liver Disease: No Hx Renal Disease: No Hx Sickle Cell Disease: No Hx Arthritis: No Hx Headaches / Migraines: No Hx Seizures: No Hx Kidney Stones: No Hx Psychiatric Treatment: No Hx Asthma: No Hx COPD: No Hx Tuberculosis: No Hx Dementia: No Hx HIV: No Additional medical history: SINUSITIS,RIGHT KNEE INJURY 07/2018 - Surgical History Past Surgical History?: Yes Hx Coronary Stent: No Hx Open Heart Surgery: No Hx Pacemaker: No Hx Internal Defibrillator: No Hx Cholecystectomy: Yes (1996) Hx Appendectomy: No Hx Breast Surgery: No Additional Surgical History: partial hysterectomy. TUBAL LIGATION - Social History Smoking Status: Never Smoker Substance Use Type: None - Medications Home Medications: Home Medications Medication Instructions Recorded Confirmed Last Taken Type Acetaminophen [Acetaminophen TAB] 650 mg PO Q6H PRN #15 tablet 11/18/18 Unknown Rx Amlodipine Besylate [Norvasc] 10 mg PO QDAY #30 tablet 11/18/18 Unknown Rx Fluticasone [Flonase] 100 mcg NS QDAY PRN 3 Days #1 11/18/18 Unknown Rx bottle Insulin Glargine,Hum.rec.anlog 12 unit SQ QAM #1 insuln.pen 11/18/18 Unknown Rx [Basaglar Kwikpen U-100] Insulin Regular, Human [Novolin R] 1 dose SQ ACHS PRN #1 vial 11/18/18 Unknown Rx Pantoprazole [Protonix TAB] 40 mg PO QDAY #30 tablet 11/18/18 Unknown Rx Potassium Chloride 10 meq PO BID #60 tablet.er 11/18/18 Unknown Rx Ibuprofen [Motrin 800 MG tab] 800 mg PO Q8HR PRN #21 tablet 06/13/19 Unknown Rx Potassium Chloride [K-Dur] 2 tab PO QDAY 30 Days #60 tablet 12/27/19 Unknown Rx Promethazine [Phenergan] 25 mg PO Q6HR PRN #10 tab 12/27/19 Unknown Rx ED Physical Exam - General Limitations: No Limitations General appearance: alert, in no apparent distress - Head Head exam: Present: atraumatic, normocephalic - Eye Eye exam: Present: normal appearance - ENT ENT exam: Present: mucous membranes moist - Neck Neck exam: Present: normal inspection, full ROM - Respiratory Respiratory exam: Present: normal lung sounds bilaterally. Absent: respiratory distress, wheezes, rales, rhonchi - Cardiovascular Cardiovascular Exam: Present: regular rate, normal rhythm, normal heart sounds. Absent: systolic murmur, diastolic murmur, rubs, gallop - GI/Abdominal GI/Abdominal exam: Present: soft, normal bowel sounds. Absent: distended, tenderness, guarding, rebound - Extremities Exam Extremities exam: Present: normal inspection - Neurological Exam Neurological exam: Present: alert, oriented X3 - Psychiatric Psychiatric exam: Present: normal affect, normal mood - Skin Skin exam: Present: warm, dry, intact, normal color. Absent: rash ED Course Vital Signs 12/27/19 05:45 Temperature 97.9 F Pulse Rate 69 Respiratory 18 Rate Blood Pressure 133/89 O2 Sat by Pulse 97 Oximetry ED Medical Decision Making - Lab Data Result diagrams: 12/27/19 07:00 12/27/19 07:00 Laboratory Results - last 24 hr 12/27/19 12/27/19 12/27/19 06:00 07:00 07:00 WBC 8.1 RBC 5.10 H Hgb 13.9 Hct 40.5 MCV 79 MCH 27 L MCHC 34 RDW 13.1 L Plt Count 336 Lymph % (Auto) 35.9 H [place] % (Auto) 7.9 H Eos % (Auto) 4.6 H Baso % (Auto) 0.6 Lymph # 2.9 [place] # 0.6 Eos # 0.4 Baso # 0.0 Seg Neutrophils % 51.0 Seg Neutrophils # 4.1 Sodium 139 Potassium 2.9 L* Chloride 95.7 L Carbon Dioxide 27 Anion Gap 19 BUN 18 H Creatinine 1.2 Estimated GFR 58 BUN/Creatinine Ratio 15 Glucose 210 H POC Glucose 215 H Calcium 9.9 - Medical Decision Making Mrs. Hutchins presents with nausea concerning for hyperglycemia. Random blood sugar 215. She was given reassurance. Nausea could be contributed to viral syndrome versus GERD versus IBS versus gastroparesis. Prescribed promethazine. Also prescribed potassium supplementation for hypokalemia Labs otherwise unremarkable. No leukocytosis on CBC. Normal kidney function. Critical care attestation.: If time is entered above; I have spent that time in minutes in the direct care of this critically ill patient, excluding procedure time. ED Disposition Clinical Impression: Diabetes, Hypokalemia, Nausea, GERD (gastroesophageal reflux disease) Disposition: TO HOME OR SELFCARE Is pt being admited?: No Does the pt Need Aspirin: No Condition: Stable Instructions: Diabetes Mellitus Type 2 in Adults (ED) Prescriptions: Potassium Chloride [K-Dur] 2 tab PO QDAY 30 Days #60 tablet Promethazine [Phenergan] 25 mg PO Q6HR PRN #10 tab PRN Reason: Nausea Referrals: PRIMARY CARE, [Primary Care Provider] - 2-3 Days
[2019-12-27 10:24] VITALS: BP 124/86
== END 2019-12-27 10:28 | disposition home or self-care (01) ==
LOC: ED 05:41
DX: E11.9 Type 2 diabetes mellitus without complications (principal); R11.0 Nausea; E87.6 Hypokalemia; K21.9 Gastro-esophageal reflux disease without esophagitis; I10 Essential (primary) hypertension; Z88.0 Allergy status to penicillin; Z79.899 Other long term (current) drug therapy; Z90.49 Acquired absence of other specified parts of digestive tract; Z90.710 Acquired absence of both cervix and uterus; Z98.51 Tubal ligation status
CPT/HCPCS: 36415; 80048; 82962; 85025